=== PATIENT | female | born 1950 | race Caucasian/White ===

== ENCOUNTER → 2016-04-29 | Outpatient (CLI) | payer MEDICARE, OTHER ==
--- NOTE | 2016-04-29 15:09 | US ---
EXAMINATION TYPE: US thyroid st tissue head/neck DATE OF EXAM: 04/29/2016 2:52 PM COMPARISON: In pacs CLINICAL HISTORY: Thyroid nodules. GLAND SIZE: Right Lobe: 4.5 x 1.5 x 2.0cm Overall Parenchyma: heterogenous Left Lobe: 3.7 x 1.3 x 1.4cm Overall Parenchyma: heterogeneous Isthmus Thickness: 0.4cm NODULES RIGHT: # of nodules measured on right: 1 1. 0.5 X 0.3 x 0.5 cm hypoechoic mixed nodule at the lower pole with well-defined margins. This no dule is wider than tall and shows peripheral vascularity. Prior size: 0.5 x 0.3 x 0.3 cm LEFT: # of nodules measured on left: 1 1. 0.6 X 0.4 x 0.6 cm hypoechoic mixed nodule at the mid pole with well-defined margins. This nodu le is wider than tall and shows peripheral vascularity. Prior size: 0.6 x 0.3 x 0.5 cm ISTHMUS: # of nodules measured in the isthmus: IMPRESSION: Heterogeneous thyroid tissue suggests thyroiditis. There are bilateral thyroid nodule which are stabl e from the previous exam with none measuring greater than 1 cm.
== END | disposition home or self-care (01) ==
LOC: RADUSWWP 14:34
PROVIDERS: ATTEND Family Medicine
DX: E04.2 Nontoxic multinodular goiter (principal)
CPT/HCPCS: 76536

== ENCOUNTER → 2016-06-06 | Outpatient (CLI) | payer MEDICARE, OTHER ==
--- NOTE | 2016-06-07 10:47 | MM ---
Reason for exam: screening (asymptomatic). Last mammogram was performed 1 year and 6 months ago. History: Patient is postmenopausal. Family history of breast cancer in maternal aunt. Benign excisional biopsy, April 2009. Took estrogen for 1 year. Physical Findings: A clinical breast exam by your physician is recommended on an annual basis and results should be correlated with mammographic findings. MG 3D Screening Mammo W/Cad Bilateral CC and MLO view(s) were taken. Prior study comparison: December 09, 2014, bilateral MG screening mammo w CAD. September 02, 2013, bilateral MG screening mammo w CAD. There are scattered fibroglandular densities. Finding: There are typically benign oil cysts calcifications in the lower quadrant of the left breast. There is a chronic nodularity in the right breast. There is no discrete abnormality. ASSESSMENT: Benign, BI-RAD 2 RECOMMENDATION: Routine screening mammogram of both breasts in 1 year.
== END | disposition home or self-care (01) ==
LOC: RADMAMWWP 08:45
PROVIDERS: ATTEND Family Medicine
DX: Z12.31 Encounter for screening mammogram for malignant neoplasm of breast (principal)
CPT/HCPCS: 77063; G0202

== ENCOUNTER → 2016-10-11 | Outpatient (CLI) | payer MEDICARE, OTHER ==
--- NOTE | 2016-10-11 18:11 | US ---
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 GLAND SIZE: Right Lobe: 4.7 x 1.4 x 1.5 cm Overall Parenchyma: heterogenous Left Lobe: 4.5 x 1.3 x 1.3 cm Overall Parenchyma: heterogeneous Isthmus Thickness: 0.4 cm NODULES RIGHT: # of nodules measured on right: 1 1. 0.6 X 0.3 x 0.5 cm hypoechoic mixed nodule at the lower pole with well-defined margins. This nod ule is wider than tall and shows peripheral vascularity. Prior size: 0.6 x 0.3 x 0.5 cm LEFT: # of nodules measured on left: 1 1. 0.6 X 0.4 x 0.6 cm hypoechoic mixed nodule at the mid pole with well-defined margins. This nodul e is wider than tall and shows peripheral vascularity. Prior size: 0.6 x 0.4 x 0.6 cm ISTHMUS: # of nodules measured in the isthmus: 0 Bilateral neck scanned, no evidence of lymphadenopathy. IMPRESSION: Small bilateral complex cysts are stable compared to old exam. I have a very low suspicion of maligna ncy. No dominant thyroid mass.
== END | disposition home or self-care (01) ==
LOC: RADUSMAIN 17:14
PROVIDERS: ATTEND Family Medicine
DX: E04.2 Nontoxic multinodular goiter (principal)
CPT/HCPCS: 76536

== ENCOUNTER → 2017-10-10 | Outpatient (CLI) | payer MEDICARE, OTHER ==
--- NOTE | 2017-10-10 13:18 | US ---
EXAMINATION TYPE: US thyroid st tissue head/neck DATE OF EXAM: 10/10/2017 COMPARISON: Thyroid ultrasound April 10, 2017 CLINICAL HISTORY: E04.1 Nontoxic Single Thyroid Nodule. GLAND SIZE: Right Lobe: 4.6 x 1.8 x 1.9 cm Overall Parenchyma: heterogenous Left Lobe: 3.8 x 1.5 x 1.5 cm Overall Parenchyma: heterogeneous Isthmus Thickness: 0.7 cm NODULES RIGHT: # of nodules measured on right: 2 1. 0.3 X 0.6 x 0.6 cm solid nodule at the medial pole with poorly defined margins; . This nodule i s wider than tall and shows no intranodular vascularity. Prior size: 0.7 x 0.6 x 0.4 cm 2. 0.4 X 0.4 x 0.4 cm solid nodule at the lower pole with well-defined margins; . This nodule is ro und and shows no intranodular vascularity. Prior size: 0.4 x0.4 x 0.3 cm LEFT: # of nodules measured on left: 2 1. 0.5 X 0.4 x 0.5 cm nodule at the lower pole with margins; . This nodule is round and shows no i ntranodular vascularity. Prior size: 0.6 x 0.5 x 0.4 cm 2. 0.4 X 0.3 x 0.6 cm mixed nodule at the mid pole with well-defined margins; . This nodule is rou nd and shows no intranodular vascularity. Prior size: 0.6 x 0.5 x 0.3 cm ISTHMUS: # of nodules measured in the isthmus: 1 1. 1.3 X 0.7 x 0.6 cm nodule at the isthmus pole with well-defined margins; . This nodule is wide r than tall and shows no intranodular vascularity. Prior size: no prior Bilateral neck scanned, no evidence of lymphadenopathy. Heterogeneous normal-sized thyroid with scattered subcentimeter bilateral nodules is redemonstrated w ithout significant interval change. Technologist robb greater than 1 cm isoechoic nodule in right th yroid, I do not feel this is true nodule on review of images saved. IMPRESSION: Overall stable findings felt present, no new definitive greater than 1 cm solid or cystic nodule. Sta ble subcentimeter nodules redemonstrated.
== END | disposition home or self-care (01) ==
LOC: RADUSWWP 12:25
PROVIDERS: ATTEND Family Medicine
DX: E04.2 Nontoxic multinodular goiter (principal)
CPT/HCPCS: 76536

== ENCOUNTER → 2017-11-06 | Outpatient (CLI) | payer MEDICARE, OTHER ==
--- NOTE | 2017-11-06 16:18 | BD ---
EXAMINATION TYPE: Axial Bone Density DATE OF EXAM: 11/06/2017 COMPARISON: 04/05/2005 CLINICAL HISTORY: 67-year-old female screening for osteoporosis Height: 64.5 IN Weight: 194 LBS FRAX RISK QUESTIONS: Secondary Osteoporosis: Current Tobacco Use: YES RISK FACTORS HISTORY OF: Family History of Osteoporosis: AUNT Active: YES Diet low in dairy products/other sources of calcium: YES Postmenopausal woman: AGE 50 Take estrogen and/or progesterone medications: NOT NOW How long: AGE 50-50 Lost more than 2 inches in height since high school: YES 04/25" MEDICATIONS: Additional Medications: BLOOD PRESSURE MEDS, IBUPROFEN EXAM MEASUREMENTS: Bone mineral densitometry was performed using the [employer] System. Bone mineral density as measured about the Lumbar spine is: ----- L1-L4(G/cm2): 0.946 T Score Values are as follows: ----- L2: -2.2 ----- L3: -1.9 ----- L4: -1.4 ----- L1-L4: -1.9 Bone mineral density has: Decreased -1.9% since study of: 04/05/2005 Bone mineral density about the R hip (g/cm2): 0.824 Bone mineral density about the L hip (g/cm2): 0.841 T Score values are as follows: -----R Neck: -1.5 -----L Neck: -1.4 -----R Total: -0.9 -----L Total: -0.9 Bone mineral density has: Decreased 11.2% since study of: 04/05/2005 IMPRESSION: Osteopenia (T Score between -2.5 and -1). There is slightly increased risk of fracture and the patient may be considered for treatment. Re-Screen 2-5 years. NOTE: T-SCORE=SD OF THE YOUNG ADULT MEAN.
--- NOTE | 2017-11-08 09:42 | MM ---
Reason for exam: screening (asymptomatic). Last mammogram was performed 1 year and 5 months ago. History: Patient is postmenopausal. Family history of breast cancer in maternal aunt. Benign excisional biopsy, April 2009. Took estrogen for 1 year. Physical Findings: A clinical breast exam by your physician is recommended on an annual basis and results should be correlated with mammographic findings. MG 3D Screening Mammo W/Cad Bilateral CC and MLO view(s) were taken. Prior study comparison: June 06, 2016, bilateral MG 3d screening mammo w/cad. December 09, 2014, bilateral MG screening mammo w CAD. There are scattered fibroglandular densities. There is chronic nodularity in the right breast. No significant changes when compared with prior studies. ASSESSMENT: Negative, BI-RAD 1 RECOMMENDATION: Routine screening mammogram of both breasts in 1 year.
== END | disposition home or self-care (01) ==
LOC: RADMAMWWP 13:12
PROVIDERS: ATTEND Family Medicine
DX: Z12.31 Encounter for screening mammogram for malignant neoplasm of breast (principal); M85.80 Other specified disorders of bone density and structure, unspecified site
CPT/HCPCS: 77063; 77067; 77080

== ENCOUNTER → 2017-11-10 | Day surgery (SDC) | payer MEDICARE, OTHER ==
[2017-11-08 12:07] VITALS: BMI 33.3
[~2017-11-10] MED LIST: LACTATED RINGERS 1,000 ML IV SCH; LIDOCAINE 1% 20 ML VIAL (10MG/ML) FOR IV START INTRADERMA PRN; LIDOCAINE 1% INJ 10MG/ML (20 ML MDV) ONE; PROPOFOL 10 MG/ML 20 ML VIAL IV ONE
[2017-11-10 11:03] VITALS: TEMP 98.5
--- NOTE | 2017-11-10 11:59 | P.PCN ---
Date of Procedure: 11/10/17 Procedure(s) Performed: BRIEF HISTORY: Patient is a 67-year-old pleasant White white female, scheduled for an elective colonoscopy as a part of value should prior history of colon polyps. Last colonoscopy was in 2010. PROCEDURE PERFORMED: Colonoscopy with biopsy. PREOPERATIVE DIAGNOSIS: History of colon polyps. IV sedation per Anesthesia. PROCEDURE: After informed consent was obtained, the patient, was brought into the endoscopy unit. IV sedation was administered by Anesthesia under continuous monitoring. Digital rectal examination was normal. Initially the Olympus CF- 160 flexible video colonoscope was then inserted in the rectum, gradually advanced into the descending colon and further advancement was not possible. The scope was removed and a. The colonoscope was then introduced into the rectum and gradually advanced into the cecum without any difficulty. Careful examination was performed as the scope was gradually being withdrawn. Ileocecal valve and the appendiceal orifice were visualized and appeared normal. Prep was poor and several areas of the colon. Thorough irrigation was performed.. Mucosa of the cecum, ascending colon, transverse colon, appeared normal. In the descending colon there were 2 small 5 mm sessile polyps were removed by cold biopsy. Rest of the descending colon, sigmoid colon, and rectum appeared normal. Retroflexion was performed in the rectum and no lesions were seen. Scattered sigmoid diverticulosis seen. The patient tolerated the procedure well. IMPRESSION: Poor prep in the right colon 5 mm 2 descending colon polyps status post removal by biopsy Scattered sigmoid diverticulosis RECOMMENDATIONS: Findings of this examination were discussed with the patient as well as her family. She was advised to follow with the biopsy doesn't have a repeat colonoscopy in 3 years because of the poor prep that was in the right colon.
[2017-11-10 12:20] VITALS: BP 145/75; PULSE 75; RESP 16
== END ==
LOC: ORWHC2ENDO 10:22
PROVIDERS: ATTEND Internal Medicine Gastroenterology
DX: Z12.11 Encounter for screening for malignant neoplasm of colon (principal); D12.4 Benign neoplasm of descending colon; K57.30 Diverticulosis of large intestine without perforation or abscess without bleeding; Z86.010 Personal history of colon polyps; I10 Essential (primary) hypertension; F17.200 Nicotine dependence, unspecified, uncomplicated; M19.90 Unspecified osteoarthritis, unspecified site; Z79.1 Long term (current) use of non-steroidal anti-inflammatories (NSAID); Z79.899 Other long term (current) drug therapy; Z88.8 Allergy status to other drugs, medicaments and biological substances
CPT/HCPCS: 88305; 45380; J2001; J2704

== ENCOUNTER → 2018-04-25 | Outpatient (CLI) | payer MEDICARE, OTHER ==
--- NOTE | 2018-04-25 12:58 | US ---
EXAMINATION TYPE: US thyroid st tissue head/neck DATE OF EXAM: 04/25/2018 COMPARISON: 10/10/2017 CLINICAL HISTORY: 68-year-old female E04.1 Nontoxic goiter. Follow up thyroid nodules TECHNIQUE: Multiple sonographic images of thyroid gland are obtained. FINDINGS: GLAND SIZE: Right Lobe: 4.5 x 1.4 x 2.2 cm Overall Parenchyma: heterogenous Left Lobe: 4.4 x 1.4 x 1.4 cm Overall Parenchyma: heterogeneous Isthmus Thickness: 0.5 cm NODULES RIGHT: # of nodules measured on right: 0 LEFT: # of nodules measured on left: 2 1. 0.6 X 0.4 x 0.7 cm hypoechoic nodule at the mid pole with well-defined margins. This nodule is w ider than tall and shows no intranodular vascularity. Prior size: 0.5 x 0.4 x 0.5 cm 2. 0.5 X 0.3 x 0.4 cm hypoechoic nodule at the upper pole with well-defined margins. This nodule is wider than tall and shows intranodular vascularity. Prior size: 6 x 3 x 4 mm ISTHMUS: # of nodules measured in the isthmus: 0 Bilateral neck scanned, no evidence of lymphadenopathy. [employer] Sales Manager notes: Heterogeneous gland with left lobe nodules described above, right lobe and isthmus nodules seen on previous exam not clearly defined on today's exam. IMPRESSION: 1. The previously seen right-sided thyroid nodules are no longer seen at this time. 2. There are 2 subcentimeter nodules on the left, the one in the upper pole has decreased 1 mm and th e one in the midpole has increased by 2 mm. Additional follow-up can be performed.
== END ==
LOC: RADUSWWP 11:47
PROVIDERS: ATTEND Family Medicine
DX: E04.2 Nontoxic multinodular goiter (principal)
CPT/HCPCS: 76536

== ENCOUNTER → 2018-09-28 | Outpatient (CLI) | payer MEDICARE, OTHER ==
--- NOTE | 2018-09-29 15:35 | US ---
EXAMINATION TYPE: US thyroid st tissue head/neck DATE OF EXAM: 09/28/2018 COMPARISON: April 25, 2018 CLINICAL HISTORY: E04.1 Nontoxic single thyroid nodule. Follow up thyroid nodules GLAND SIZE: Right Lobe: 5.0 x 1.6 x 2.3 cm Overall Parenchyma: heterogenous Left Lobe: 3.9 x 1.4 x 1.5 cm Overall Parenchyma: heterogeneous Isthmus Thickness: 0.5 cm NODULES RIGHT: # of nodules measured on right: 0 LEFT: # of nodules measured on left: 2 1. 0.7 X 0.4 x 0.6 cm hypoechoic mixed nodule at the mid pole with well-defined margins. This nodul e is wider than tall and shows no intranodular vascularity. Prior size: 0.6 x 0.4 x 0.7 cm 2. 0.4 X 0.3 x 0.4 cm hypoechoic solid nodule at the upper pole with well-defined margins. This nodu le is wider than tall and shows intranodular vascularity. Prior size: 0.5 x 0.3 x 0.4 cm ISTHMUS: # of nodules measured in the isthmus: 0 Bilateral neck scanned, no evidence of lymphadenopathy. IMPRESSION: Bilateral thyroid nodules are stable compared to old exam. No dominant thyroid mass.
== END ==
LOC: RADUSWWP 16:11
PROVIDERS: ATTEND Family Medicine
DX: E04.2 Nontoxic multinodular goiter (principal)
CPT/HCPCS: 76536

== ENCOUNTER → 2018-11-07 | Outpatient (CLI) | payer MEDICARE, OTHER ==
--- NOTE | 2018-11-08 14:51 | MM ---
Reason for exam: screening (asymptomatic). Last mammogram was performed 1 year ago. History: Patient is postmenopausal. Family history of breast cancer in maternal aunt. Benign excisional biopsy, April 2009. Took estrogen for 1 year. Physical Findings: A clinical breast exam by your physician is recommended on an annual basis and results should be correlated with mammographic findings. MG 3D Screening Mammo W/Cad Bilateral CC and MLO view(s) were taken. Prior study comparison: November 06, 2017, bilateral MG 3d screening mammo w/cad. June 06, 2016, bilateral MG 3d screening mammo w/cad. There are scattered fibroglandular densities. There is chronic nodularity bilaterally. No significant changes when compared with prior studies. ASSESSMENT: Benign, BI-RAD 2 RECOMMENDATION: Routine screening mammogram of both breasts in 1 year.
== END | disposition home or self-care (01) ==
LOC: RADMAMWWP 12:58
PROVIDERS: ATTEND Family Medicine
DX: Z12.31 Encounter for screening mammogram for malignant neoplasm of breast (principal)
CPT/HCPCS: 77063; 77067

== ENCOUNTER → 2019-11-12 | Outpatient (CLI) | payer MEDICARE, OTHER ==
--- NOTE | 2019-11-12 11:28 | US ---
EXAMINATION TYPE: US thyroid st tissue head/neck DATE OF EXAM: 11/12/2019 COMPARISON: 09/28/2018 CLINICAL HISTORY: 69-year-old female E04.2 MULTINODULAR GOITER. Follow up nodules. No hx of biopsy. TECHNIQUE: Multiple sonographic images of the thyroid gland are obtained. FINDINGS: GLAND SIZE: Right Lobe: 4.6 x 1.8 x 1.7 cm Overall Parenchyma: heterogenous Left Lobe: 4.1 x 1.2 x 1.2 cm Overall Parenchyma: heterogeneous Isthmus Thickness: 0.4 cm NODULES RIGHT: # of nodules measured on right: 0 LEFT: # of nodules measured on left: 2 1. 0.6 X 0.5 x 0.4 cm mixed nodule at the mid pole with well-defined margins. This nodule is wider than tall and shows no intranodular vascularity. Prior size: 0.7 x 0.4 x 0.6 cm 2. 0.4 X 0.4 x 0.3 cm hypoechoic nodule at the upper pole with well-defined margins. This nodule is wider than tall and shows no intranodular vascularity. Prior size: 0.4 x 0.3 x 0.4 cm ISTHMUS: # of nodules measured in the isthmus: 0 Bilateral neck scanned, no evidence of lymphadenopathy. IMPRESSION: 2 stable subcentimeter nodules on the left measuring 6 and 4 mm.
--- NOTE | 2019-11-13 08:43 | MM ---
Reason for exam: screening (asymptomatic). Last mammogram was performed 1 year ago. History: Patient is postmenopausal. Family history of breast cancer in maternal aunt. Benign excisional biopsy, April 2009. Took estrogen for 1 year. Physical Findings: A clinical breast exam by your physician is recommended on an annual basis and results should be correlated with mammographic findings. MG 3D Screening Mammo W/Cad Bilateral CC and MLO view(s) were taken. Prior study comparison: November 07, 2018, bilateral MG 3d screening mammo w/cad. November 06, 2017, bilateral MG 3d screening mammo w/cad. There are scattered fibroglandular densities. There is chronic nodularity bilaterally. There is no discrete abnormality. ASSESSMENT: Benign, BI-RAD 2 RECOMMENDATION: Routine screening mammogram of both breasts in 1 year.
== END | disposition home or self-care (01) ==
LOC: RADMAMWWP 07:14
PROVIDERS: ATTEND Family Medicine
DX: Z12.31 Encounter for screening mammogram for malignant neoplasm of breast (principal); E04.2 Nontoxic multinodular goiter
CPT/HCPCS: 76536; 77063; 77067

== ENCOUNTER → 2020-11-02 | Outpatient (CLI) | payer MEDICARE, OTHER ==
--- NOTE | 2020-11-03 09:21 | US ---
EXAMINATION TYPE: US thyroid st tissue head/neck DATE OF EXAM: 11/02/2020 COMPARISON: US CLINICAL HISTORY: E04.2 MULTINODULAR GOITER. F/U GLAND SIZE: Right Lobe: 4.3 x 1.9 x 1.9 cm Overall Parenchyma: homogenous Left Lobe: 4.5 x 1.4 x 1.4 cm Overall Parenchyma: heterogeneous Isthmus Thickness: 0.4 cm NODULES RIGHT: # of nodules measured on right: 0 LEFT: # of nodules measured on left: 2 1. 0.8 X 0.7 x 0.4 cm, mid mixed cystic and solid, hyperechoic nodule, which is wider than tall, wi th smooth margins, without echogenic foci. Prior size: 0.6 x 0.5 x 0.4 cm 2. 0.5 X 0.5 x 0.2 cm, upper , solid or almost completely solid, hyperechoic nodule, which is wide r than tall, with smooth margins, without echogenic foci. Prior size: 0.4 x 0.4 x 0.3 cm Bilateral neck scanned, no evidence of lymphadenopathy. IMPRESSION: No significant change since prior examination in the left thyroid nodules. 2017 ACR TI-RADS LEVEL: TR-RADS 4 - Moderately Suspicious: Follow if > 1 cm, FNA if > 1.5 cm *Highest TI-RADS level nodule reported
== END | disposition home or self-care (01) ==
LOC: RADUSWWP 15:58
PROVIDERS: ATTEND Family Medicine
DX: E04.2 Nontoxic multinodular goiter (principal)
CPT/HCPCS: 76536

== ENCOUNTER → 2020-11-16 | Outpatient (CLI) | payer MEDICARE, OTHER ==
--- NOTE | 2020-11-19 14:13 | MM ---
Reason for exam: screening (asymptomatic). Last mammogram was performed 1 year ago. History: Patient is postmenopausal. Family history of breast cancer in maternal aunt. Benign excisional biopsy, April 2009. Took estrogen for 1 year. Physical Findings: A clinical breast exam by your physician is recommended on an annual basis and results should be correlated with mammographic findings. MG 3D Screening Mammo W/Cad Bilateral CC and MLO view(s) were taken. Prior study comparison: November 12, 2019, bilateral MG 3d screening mammo w/cad. November 07, 2018, bilateral MG 3d screening mammo w/cad. There are scattered fibroglandular densities. There is chronic nodularity bilaterally. No significant changes when compared with prior studies. ASSESSMENT: Benign, BI-RAD 2 RECOMMENDATION: Routine screening mammogram of both breasts in 1 year.
== END | disposition home or self-care (01) ==
LOC: RADMAMWWP 08:00
PROVIDERS: ATTEND Family Medicine
DX: Z12.31 Encounter for screening mammogram for malignant neoplasm of breast (principal)
CPT/HCPCS: 77063; 77067

== ENCOUNTER → 2021-05-25 | Outpatient (CLI) | payer MEDICARE, OTHER ==
--- NOTE | 2021-05-25 13:47 | US ---
EXAMINATION TYPE: US thyroid st tissue head/neck DATE OF EXAM: 05/25/2021 COMPARISON: 11/02/2020 CLINICAL HISTORY: E04.2 MULTINODULAR GOITER. Follow up exam GLAND SIZE: Right Lobe: 4.7 x 1.7 x 2.2 cm Overall Parenchyma: heterogenous Left Lobe: 4.3 x 1.2 x 1.4 cm Overall Parenchyma: heterogeneous Isthmus Thickness: 0.33 cm NODULES RIGHT: # of nodules measured on right: 0 LEFT: # of nodules measured on left: 1 1. 0.9 X 0.5 x 0.7 cm, mid , mixed cystic and solid, hypoechoic nodule, which is wider than tall, w ith smooth margins, without echogenic foci. Prior size: 0.8 x 0.7 x 0.4 cm ISTHMUS: # of nodules measured in the isthmus: 0 Bilateral neck scanned, no evidence of lymphadenopathy. Heterogeneous normal size thyroid redemonstrated with stable subcentimeter left thyroid nodule. IMPRESSION: As above. No suspicious new greater than 1 cm solid nodules.
== END | disposition home or self-care (01) ==
LOC: RADUSWWP 13:15
PROVIDERS: ATTEND Family Medicine
DX: E04.2 Nontoxic multinodular goiter (principal)
CPT/HCPCS: 76536

== ENCOUNTER → 2021-11-29 | Outpatient (CLI) | payer MEDICARE, OTHER ==
--- NOTE | 2021-11-29 08:45 | MM ---
Reason for Exam: Screening (asymptomatic). Last mammogram was performed 1 year(s) and 1 month(s) ago. Patient History: Menarche at age 12. First Full-Term at age 20. Postmenopausal. Patient used Estrogen for 1 year. Benign Excisional Biopsy. Maternal aunt had breast cancer. Risk Values: Gilda 5 year model risk: 1.6%. NCI Lifetime model risk: 4.7%. Prior Study Comparison: 11/07/2018 Bilateral Screening Mammogram, [facility]. 11/12/2019 Bilateral Screening Mammogram, [facility]. 11/16/2020 Bilateral Screening Mammogram, [facility]. Tissue Density: There are scattered fibroglandular densities. Findings: Analyzed By CAD. There is no suspicious group of microcalcifications or new suspicious mass in either breast. Chronic nodularity bilaterally. No significant change from prior exams. Overall Assessment: Benign, BI-RAD 2 Management: Screening Mammogram of both breasts in 1 year. A clinical breast exam by your physician is recommended on an annual basis and results should be correlated with mammographic findings. Electronically signed and approved by: Lucho Wooten D.O.
== END | disposition home or self-care (01) ==
LOC: RADMAMWWP 06:38
PROVIDERS: ATTEND Family Medicine
DX: Z12.31 Encounter for screening mammogram for malignant neoplasm of breast (principal)
CPT/HCPCS: 77063; 77067

== ENCOUNTER 2021-12-22 07:30 | Inpatient (IN) | payer MEDICARE, OTHER ==
[2021-12-24] MEDS ORDERED: ALPRAZolam 0.25 MG TAB PO PRN (05:49)
[2021-12-24] MEDS ORDERED: ALPRAZolam 0.5 MG TAB PO PRN (05:49)
[2021-12-24] MEDS ORDERED: SODIUM CHLORIDE 0.9% 1,000 ML in EMPTY BAG 1 BAG IV ONE (05:49)
[2021-12-24] MEDS ORDERED: CLOPIDOGREL 75 MG TAB PO PRN (05:49)
[2021-12-24] MEDS ORDERED: ASPIRIN 81 MG PO PRN (05:49)
[2021-12-24] MEDS ORDERED: NITROGLYCERIN SL TABS 0.4 MG TAB SUBLINGUAL PRN (05:49)
[2021-12-24] MEDS ORDERED: ceFAZolin 2 GM in SODIUM CHLORIDE 0.9% 500 ML 500 ML IRRIGATION PRN (07:00)
[2021-12-24] MEDS ORDERED: SODIUM CHLORIDE 0.9% 1,000 ML IV ONE (07:10)
[2021-12-24] MEDS ORDERED: LIDOCAINE 1% INJ 10MG/ML (30 ML VIAL-PF) SQ ONE (07:52)
[2021-12-24] MEDS ORDERED: HEPARIN SODIUM 1,000 UN/ML (10ML VL) ONE (08:06)
[2021-12-24] MEDS ORDERED: HEPARIN SODIUM 1,000 UN/ML (10ML VL) IV ONE ×2 (08:08→08:21)
[2021-12-24] MEDS ORDERED: CLOPIDOGREL 75 MG TAB ONE (08:09)
[2021-12-24] MEDS ORDERED: CLOPIDOGREL 75 MG TAB PO ONE (08:18)
[2021-12-24] MEDS ORDERED: IOPAMIDOL-370 125ML BTL INJ ONE ×2 (08:46)
--- NOTE | 2021-12-24 09:22 | IR ---
EXAMINATION TYPE: IR stent intravas non coronary DATE OF EXAM: 12/24/2021 COMPARISON: NONE HISTORY: Fluoroscopy time. Fluoroscopy was provided to the referring clinician.
[2021-12-24] MEDS: ATORVASTATIN 80 MG TAB PO SCH (10:40)
[2021-12-24] MEDS: ASPIRIN 81 MG PO SCH (10:40)
[2021-12-24] MEDS: CLOPIDOGREL 75 MG TAB PO SCH (10:41)
--- NOTE | 2021-12-24 17:54 | P.OP ---
Description of Procedure: DESCRIPTION OF PROCEDURE(S): PROCEDURES PERFORMED: Ascending aortic root angiography, selective left carotid angiography, carotid stent with 7 x 9 x 40mm Xact carotid stent, post dilated with a 5.0 balloon INDICATION: Severe asymptomatic carotid artery stenosis CONSENT:I have discussed the risks, benefits and alternative therapies for the above-mentioned procedure and for both sedation/analgesia as well as necessary blood product administration, if indicated, as they pertain to this patient. The patient has indicated understanding and acceptance of the risks and procedures discussed. PROCEDURE: After the risks, benefits and alternatives of the above mentioned procedure explained in detail with the patient, informed consent was obtained. Patient was taken to the catheterization lab and prepped and draped in usual fashion. 1% lidocaine was used to anesthetize the right femoral area. A 6- Barbadian sheath was placed in the right femoral artery using modified Seldinger technique. A 5-Barbadian pigtail catheter was inserted to the ascending aorta and DSA imaging was obtained. Next using VTK catheter the proximal left common carotid artery was engaged and selective angiography was performed. Angiography showed severe 99% stenosis and therefore intervention was recommended. Heparin was given for ACT greater than 250. Therefore a 0.035 glide advantage was advanced into the left external carotid artery. Over the glide advantage wire, a 6-Barbadian destination sheath was advanced into the left common carotid artery. Next a 0.014 Embo shield distal embolic protection device was advanced into the petrous portion of the left internal carotid artery. The filter was then deployed. Next predilation was performed with a 4.0 x 20 mm balloon. Next a 9 x 7 x 40 mm Xact carotid stent was deployed. The stent was postdilated with a 5.0 x 20 mm balloon. Pre-intervention there was 99% stenosis and mildly sluggish flow postintervention there was less than 10% stenosis with uninhibited flow. A right femoral angiogram was performed and anatomoy was suitable for closure. A 6Fr Angioseal was placed with hemostasis achieved. The patient tolerated the procedure well. Patient was transported back to the post catheterization holding area in stable condition. ASCENDING AORTA: There is no significant aneurysm or stenosis. Right common carotid: 0% stenosis Right internal carotid artery: 20% stenosis Left common carotid: 0% stenosis Left internal carotid artery: 99% stenosis FINAL IMPRESSION: 1. 99% left internal carotid artery stenosis, status post carotid stent with 7 x 9 x 40mm Xact carotid stent, post dilated with a 5.0 balloon with excellent result PLAN: 1. Aggressive risk factor modification per most recent ACC/AHA guidelines. 2. Continue dual antiplatelets with aspirin and Plavix for minimum of 3 months. 3. Monitor for any hemodynamic or electrical instability.
[2021-12-25 03:51] VITALS: RESP 18
[2021-12-25] MEDS: ATORVASTATIN 80 MG TAB PO SCH (08:56)
[2021-12-25] MEDS: CLOPIDOGREL 75 MG TAB PO SCH (08:56)
[2021-12-25] MEDS: ASPIRIN 81 MG PO SCH (08:56)
[2021-12-25 09:08] VITALS: BP 131/69; PULSE 91; TEMP 97.7
--- NOTE | 2021-12-25 10:58 | P.DS ---
Providers Date of admission: 12/24/21 06:20 Attending physician: Royce Cevallos DO Primary care physician: [facility] Course: The patient is a 71-year-old female who follows with Dr. Flower in the office. She is currently admitted to the hospital after undergoing left carotid stenting on 12/24/[address] Cveallos. The patient had 99% left carotid stenosis prior to stenting with less than 10% stenosis thereafter. The patient was interviewed and examined. She states she's done well postoperatively. She has been up ambulating around her room. She denies any dizziness or lightheadedness. No visual disturbances. No discomfort in her groin. GENERAL: Well-appearing, well-nourished and in no acute distress. NECK: Supple without JVD or thyromegaly. No carotid bruit. LUNGS: Breath sounds clear to auscultation bilaterally. Respiration equal and unlabored. No wheezes, rales or rhonchi. HEART: Regular rate and rhythm without murmurs, rubs or gallops. S1 and S2 heard. EXTREMITIES: Normal range of motion, no edema. No clubbing or cyanosis. Peripheral pulses intact and strong. Right groin site has mild bruising. No hematoma. No signs of infection. IMPRESSION: Severe left carotid stenosis Status post carotid stenting Dyslipidemia, repeat direct LDL PLAN: Patient to be discharged on dual antiplatelet therapy Continue her rosuvastatin 40 mg daily Patient may be discharged from the cardiac standpoint I am dictating on behalf of Dr Venancio Flower's history/physical and assessment/plan. Plan - Discharge Summary Discharge Rx Participant: No New Discharge Prescriptions: Continue Rosuvastatin Calcium 40 mg PO DAILY Aspirin 81 mg PO DAILY Unk Vitamin B12 1 tab PO DAILY Clopidogrel [Plavix] 75 mg PO DAILY Unk Vitamin D3 1 tab PO DAILY Discharge Medication List Aspirin 81 mg PO DAILY 12/23/21 [History] Clopidogrel [Plavix] 75 mg PO DAILY 12/23/21 [History] Rosuvastatin Calcium 40 mg PO DAILY 12/23/21 [History] Unk Vitamin B12 1 tab PO DAILY 12/23/21 [History] Unk Vitamin D3 1 tab PO DAILY 12/23/21 [History] Follow up Appointment(s)/Referral(s): Venancio Flower MD [STAFF PHYSICIAN] - 1 Week (f/u rizwana abdul/todd ) Patient Instructions/Handouts: Carotid Artery Stent Placement (DC)
[2021-12-25 17:43] LABS: Chol/HDL Ratio 2.85 Ratio; LDL Cholesterol,Calculated 39.4 mg/dL (0.0-131.0)
== END 2021-12-25 12:45 | disposition home or self-care (01) | DRG 36 ==
LOC: 2ORMAIN 12-24 06:20 → 3SCARD 12-24 09:22
PROVIDERS: ADMIT Internal Medicine; ATTEND Internal Medicine
PROC: 037L3DZ Dilation of Left Internal Carotid Artery with Intraluminal Device, Percutaneous Approach (ICD-10-PCS; principal; 2021-12-24 07:30)
DX: I65.22 Occlusion and stenosis of left carotid artery (principal); E78.5 Hyperlipidemia, unspecified; I10 Essential (primary) hypertension; Z79.899 Other long term (current) drug therapy; Z82.49 Family history of ischemic heart disease and other diseases of the circulatory system; F17.210 Nicotine dependence, cigarettes, uncomplicated
CPT/HCPCS: 37215; 80061; 87635

== ENCOUNTER → 2022-12-12 | Outpatient (CLI) | payer MEDICARE, OTHER ==
--- NOTE | 2022-12-12 10:48 | US ---
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 0.7 X 0.6 x 0.9 cm, mid, mixed cystic and solid, hypoechoic nodule, which is wider than tall, wi th smooth margins, without echogenic foci. Prior size: 0.7 x 0.5 x 0.9 cm ISTHMUS: # of nodules measured in the isthmus: 0 Bilateral neck scanned, no evidence of lymphadenopathy. Stable sub-centimeter left thyroid nodule. IMPRESSION: 1. Subcentimeter nodule appears stable left lobe thyroid. 2017 ACR TI-RADS LEVEL: TR-RADS 4 - Moderately Suspicious: Follow if > 1 cm, FNA if > 1.5 cm *Highest TI-RADS level nodule reported
--- NOTE | 2022-12-13 08:13 | MM ---
Reason for Exam: Screening (asymptomatic). Last screening mammogram was performed 12 month(s) ago. Patient History: Menarche at age 12. First Full-Term at age 20. Postmenopausal. Patient used Estrogen for 1 year. Benign Excisional Biopsy. Maternal aunt had breast cancer. Risk Values: Gilda 5 year model risk: 1.6%. NCI Lifetime model risk: 4.5%. Prior Study Comparison: 11/12/2019 Bilateral Screening Mammogram, [facility]. 11/16/2020 Bilateral Screening Mammogram, [facility]. 11/29/2021 Bilateral MG 3D screening mammo w/cad, [facility]. Tissue Density: The breast tissue is heterogeneously dense. This may lower the sensitivity of mammography. Findings: Analyzed By CAD. There is no suspicious group of microcalcifications or new suspicious mass in either breast. Overall Assessment: Benign, BI-RAD 2 Management: Screening Mammogram of both breasts in 1 year. . Patient should continue monthly self-breast exams. A clinical breast exam by your physician is recommended on an annual basis. This exam should not preclude additional follow-up of suspicious palpable abnormalities. Note on Gilda scores and lifetime risk: 1. A Gilda score greater than 3% is considered moderate risk. If this is the case, consider specialist referral to assess eligibility for a risk reducing agent. 2. If overall lifetime risk for the development of breast cancer is 20% or higher, the patient may qualify for future screening with alternating mammogram and breast MRI. Electronically signed and approved by: Fidencio Rodriguez M.D. Radiologis
== END | disposition home or self-care (01) ==
LOC: RADMAMWWP 09:33
PROVIDERS: ATTEND Family Medicine
DX: Z12.31 Encounter for screening mammogram for malignant neoplasm of breast (principal); E04.2 Nontoxic multinodular goiter; Z78.0 Asymptomatic menopausal state; Z80.3 Family history of malignant neoplasm of breast
CPT/HCPCS: 76536; 77063; 77067

== ENCOUNTER 2023-02-07 08:32 | Inpatient (IN) | payer MEDICARE, OTHER ==
[2023-02-07] MEDS ORDERED: SODIUM CHLORIDE 0.9% 500 ML 500 ML IV STA (09:11)
--- NOTE | 2023-02-07 09:20 | ED ---
General Adult HPI - General Chief complaint: Recheck/Abnormal Lab/Rx Stated complaint: BP HIGH DIZZY NUMBNESS LFT SIDE FACE Time Seen by Provider: 02/07/23 08:40 Source: patient, RN notes reviewed, old records reviewed Mode of arrival: ambulatory Limitations: no limitations - History of Present Illness Initial comments: 73-year-old female presenting for evaluation of elevated blood pressure. Patient does not have a diagnosis of hypertension. She's had previous carotid artery stenting and is on 81 mg of aspirin as well as Plavix. Over the past 24 hours she has developed some dizziness as well as some left facial tingling. No facial weakness or droop. No speech and normalities. No limb weakness. - Related Data Home Medications Medication Instructions Recorded Confirmed Aspirin 81 mg PO DAILY 12/23/21 12/24/21 Clopidogrel [Plavix] 75 mg PO DAILY 12/23/21 12/24/21 Rosuvastatin Calcium 40 mg PO DAILY 12/23/21 12/24/21 Unk Vitamin B12 1 tab PO DAILY 12/23/21 12/23/21 Unk Vitamin D3 1 tab PO DAILY 12/23/21 12/23/21 Allergies Allergy/AdvReac Type Severity Reaction Status Date / Time Beta-Blockers Allergy Rash/Hives Verified 02/07/23 08:53 (Beta-Adrenergic Bloc Review of Systems ROS Statement: Those systems with pertinent positive or pertinent negative responses have been documented in the HPI. ROS Other: All systems not noted in ROS Statement are negative. Past Medical History Past Medical History: Hyperlipidemia Additional Past Medical History / Comment(s): left carotid decreased flow per scan, pt denies sx. arthritis in spine and hips, Hx of kidney stones. Stent left Carotid History of Any Multi-Drug Resistant Organisms: None Reported Past Surgical History: Cholecystectomy, Tonsillectomy Additional Past Surgical History / Comment(s): rt cataract removed and repaid or torn retina. left shoulder bone spur removed. Couple D&Cs, cyst removed above rt eye. cyst removed rt ovary Past Anesthesia/Blood Transfusion Reactions: No Reported Reaction Additional Past Anesthesia/Blood Transfusion Reaction / Comment(s): no blood transfusion issues Past Psychological History: Anxiety Smoking Status: Former smoker Past Alcohol Use History: Occasional Past Drug Use History: None Reported - Past Family History Father Family Medical History: Cancer Mother Family Medical History: Coronary Artery Disease (CAD) Daughter(s) Additional Family Medical History / Comment(s): blood clot -leg General Exam Limitations: no limitations General appearance: alert, in no apparent distress Head exam: Present: atraumatic, normocephalic Eye exam: Present: normal appearance, PERRL Neck exam: Present: normal inspection Respiratory exam: Present: normal lung sounds bilaterally. Absent: respiratory distress, wheezes Cardiovascular Exam: Present: regular rate, normal rhythm GI/Abdominal exam: Present: soft. Absent: distended, tenderness Neurological exam: Present: alert, oriented X3, CN II-XII intact, other (NIH is 0). Absent: motor sensory deficit Psychiatric exam: Present: normal affect, normal mood Skin exam: Present: warm, dry, intact. Absent: cyanosis, diaphoretic Course Vital Signs 02/07/23 08:49 Temperature 97.4 F L Pulse Rate 98 Respiratory 18 Rate Blood Pressure 156/77 O2 Sat by Pulse 96 Oximetry Medical Decision Making - Medical Decision Making Was pt. sent in by a medical professional or institution (, PA, HARD[employer] FLOOR REFINISHER, urgent care, hospital, or detention...) When possible be specific @ -No Did you speak to anyone other than the patient for history (EMS, parent, family, police, friend...)? What history was obtained from this source @ -No Did you review nursing and triage notes (agree or disagree)? Why? @ -I reviewed and agree with nursing and triage notes Were old charts reviewed (outside hosp., previous admission, EMS record, old EKG, old radiological studies, urgent care reports/EKG's, detention records)? Report findings @ -No old charts were reviewed Differential Diagnosis (chest pain, altered mental status, abdominal pain women, abdominal pain men, vaginal bleeding, weakness, fever, dyspnea, syncope, headache, dizziness, GI bleed, back pain, seizure, CVA, palpatations, mental health, musculoskeletal)? @ Differential CVA Ischemic stroke, hemorrhagic stroke, brain tumor, atypical migraine, Wernicke's encephalopathy, seizure, multiple sclerosis, meningitis, encephalitis, hypoglycemia, Guillain-Cortez, electrolytes disturbance, myasthenia gravis.... This is not meant to be an all-inclusive list EKG interpreted by me (3pts min.). @ -[Sinus rhythm rate of 92, IN interval 159, QRS duration 88, QTC [address] segment elevation, ST segment depression in the lateral precordial leads X-rays interpreted by me (1pt min.). @ -None done CT interpreted by me (1pt min.). @ CT negative for intracranial hemorrhage or mass effect U/S interpreted by me (1pt. min.). @ -None done What testing was considered but not performed or refused? (CT, X-rays, U/S, labs)? Why? @ -None What meds were considered but not given or refused? Why? @ -None Did you discuss the management of the patient with other professionals (professionals i.e. , PA, [employer] REFINISHER, lab, RT, psych nurse, director social, automobile sales consultant, teacher, information assurance officer, director of casework services)? Give summary @ Dr. Chris Was smoking cessation discussed for >3mins.? @ -No Was critical care preformed (if so, how long)? @ -No Were there social determinants of health that impacted care today? How? (Homelessness, low income, unemployed, alcoholism, drug addiction, transportation, low edu. Level, literacy, decrease access to med. care, residential, rehab)? @ -No Was there de-escalation of care discussed even if they declined (Discuss DNR or withdrawal of care, Hospice)? DNR status @ -No What co-morbidities impacted this encounter? (DM, HTN, Smoking, COPD, CAD, Cancer, CVA, ARF, Chemo, Hep., AIDS, mental health diagnosis, sleep apnea, morbid obesity)? @ -[Carotid stenosis Was patient admitted / discharged? Hospital course, mention meds given and route, prescriptions, significant lab abnormalities, going to OR and other pertinent info. @ 73-year-old female with left facial numbness and tingling, dizziness which is acute and mildly elevated blood pressure. There is concern for CVA her symptoms have been present for the past 24 hours. She has no speech or melena, no limb weakness. Patient receives CT imaging of the brain in the emergency department which is negative for intracranial hemorrhage or mass effect. She's given a full dose aspirin. She will be admitted for further stroke evaluation. Undiagnosed new problem with uncertain prognosis? @ -No Drug Therapy requiring intensive monitoring for toxicity (Heparin, Nitro, Insulin, Cardizem)? @ -No Were any procedures done? @ -No Diagnosis/symptom? @ Left facial numbness and tingling, hypertension, dizziness, rule out CVA Acute, or Chronic, or Acute on Chronic? @ -Acute Uncomplicated (without systemic symptoms) or Complicated (systemic symptoms)? @ -Complicated Side effects of treatment? @ -No Exacerbation, Progression, or Severe Exacerbation? @ -No Poses a threat to life or bodily function? How? (Chest pain, [place], [place], pneumonia, PE, COPD, DKA, ARF, appy, cholecystitis, CVA, Diverticulitis, Homicidal, Suicidal, threat to staff... and all critical care pts) @ -Yes, CVA - Lab Data Result diagrams: 02/07/23 09:26 02/07/23 09: Lab Results 02/07/23 02/07/23 02/07/23 Range/Units 09:26 09: 09:26 WBC 8.7 (3.8-10.6) k/uL RBC 4.61 (3.80-5.40) m/uL Hgb 14.5 (11.4-16.0) gm/dL Hct 43.5 (34.0-46.0) % MCV 94.5 (80.0-100.0) fL MCH 31.5 (25.0-35.0) pg MCHC 33.3 (31.0-37.0) g/dL RDW 14.1 (11.5-15.5) % Plt Count 148 L (150-450) k/uL MPV 9.5 Neutrophils % 76 % Lymphocytes % 18 % Monocytes % 3 % Eosinophils % 1 % Basophils % 0 % Neutrophils # 6.7 (1.3-7.7) k/uL Lymphocytes # 1.6 (1.0-4.8) k/uL Monocytes # 0.3 (0-1.0) k/uL Eosinophils # 0.1 (0-0.7) k/uL Basophils # 0.0 (0-0.2) k/uL PT 10.6 (10.0-12.5) sec INR 1.0 (<1.2) APTT 24.7 (22.0-30.0) sec Sodium 143 (137-145) mmol/L Potassium 3.2 L (3.5-5.1) mmol/L Chloride 106 (98-107) mmol/L Carbon Dioxide 26 (22-30) mmol/L Anion Gap 11 mmol/L BUN 11 (7-17) mg/dL Creatinine 0.59 (0.52-1.04) mg/dL Est GFR (CKD-EPI)AfAm >90 (>60 ml/min/1.73 sqM) Est GFR (CKD-EPI)NonAf >90 (>60 ml/min/1.73 sqM) Glucose 137 H (74-99) mg/dL Calcium 9.2 (8.4-10.2) mg/dL Total Bilirubin 0.7 (0.2-1.3) mg/dL AST 18 (14-36) U/L ALT 17 (4-34) U/L Alkaline Phosphatase 109 (38-126) U/L Troponin I (0.000-0.034) ng/mL Total Protein 6.8 (6.3-8.2) g/dL Albumin 4.1 (3.5-5.0) g/dL 02/07/23 Range/Units 09:26 WBC (3.8-10.6) k/uL RBC (3.80-5.40) m/uL Hgb (11.4-16.0) gm/dL Hct (34.0-46.0) % MCV (80.0-100.0) fL MCH (25.0-35.0) pg MCHC (31.0-37.0) g/dL RDW (11.5-15.5) % Plt Count (150-450) k/uL MPV Neutrophils % % Lymphocytes % % Monocytes % % Eosinophils % % Basophils % % Neutrophils # (1.3-7.7) k/uL Lymphocytes # (1.0-4.8) k/uL Monocytes # (0-1.0) k/uL Eosinophils # (0-0.7) k/uL Basophils # (0-0.2) k/uL PT (10.0-12.5) sec INR (<1.2) APTT (22.0-30.0) sec Sodium (137-145) mmol/L Potassium (3.5-5.1) mmol/L Chloride (98-107) mmol/L Carbon Dioxide (22-30) mmol/L Anion Gap mmol/L BUN (7-17) mg/dL Creatinine (0.52-1.04) mg/dL Est GFR (CKD-EPI)AfAm (>60 ml/min/1.73 sqM) Est GFR (CKD-EPI)NonAf (>60 ml/min/1.73 sqM) Glucose (74-99) mg/dL Calcium (8.4-10.2) mg/dL Total Bilirubin (0.2-1.3) mg/dL AST (14-36) U/L ALT (4-34) U/L Alkaline Phosphatase (38-126) U/L Troponin I <0.012 (0.000-0.034) ng/mL Total Protein (6.3-8.2) g/dL Albumin (3.5-5.0) g/dL Disposition Clinical Impression: CVA (cerebral vascular accident) Disposition: ADMITTED IP TO THIS [facility] Condition: Stable Is patient prescribed a controlled substance at d/c from ED?: No Referrals: Minh Martinez DO [Primary Care Provider] - 1-2 days Time of Disposition: 10:16
[2023-02-07 09:41] LABS: Basophils % (A) 0 %; Eosinophils # (A) 0.1 k/uL (0-0.7); Eosinophils % (A) 1 %; HCT 43.5 % (34.0-46.0); HGB 14.5 gm/dL (11.4-16.0); Lymphocytes # (A) 1.6 k/uL (1.0-4.8); Lymphocytes % (A) 18 %; MCH 31.5 pg (25.0-35.0); MCHC 33.3 g/dL (31.0-37.0); MCV 94.5 fL (80.0-100.0); Mean Platelet Volume 9.5; Monocytes # (A) 0.3 k/uL (0-1.0); Monocytes % (A) 3 %; Neutrophils # (A) 6.7 k/uL (1.3-7.7); Neutrophils % (A) 76 %; Platelet Count 148 k/uL (150-450); RBC 4.61 m/uL (3.80-5.40); RDW 14.1 % (11.5-15.5); WBC 8.7 k/uL (3.8-10.6)
[2023-02-07 09:50] LABS: ALT 17 U/L (4-34); AST 18 U/L (14-36); African American GFR (CKD) >90 (>60 ml/min/1.73 sqM); Albumin 4.1 g/dL (3.5-5.0); Alkaline Phosphatase 109 U/L (38-126); Anion Gap 11 mmol/L; Blood Urea Nitrogen 11 mg/dL (7-17); Calcium 9.2 mg/dL (8.4-10.2); Carbon Dioxide 26 mmol/L (22-30); Chloride 106 mmol/L (98-107); Glucose 137 mg/dL (74-99); Non-African American GFR(CKD) >90 (>60 ml/min/1.73 sqM); Potassium 3.2 mmol/L (3.5-5.1); Sodium 143 mmol/L (137-145); Total Bilirubin 0.7 mg/dL (0.2-1.3); Total Protein 6.8 g/dL (6.3-8.2)
--- NOTE | 2023-02-07 09:55 | XR ---
EXAMINATION TYPE: XR chest 2V DATE OF EXAM: 02/07/2023 COMPARISON: NONE TECHNIQUE: PA and lateral views submitted. HISTORY: Hypertension FINDINGS: The lungs are clear and there is no pneumothorax, pleural effusion, or focal pneumonia. Heart size normal and no overt failure. Osseous structures demonstrate hypertrophic and degenerative changes of the spine. AC joint arthropathy with diffuse osteopenia. Limited inspiration. Coarsened interstitial markings. IMPRESSION: 1. No acute process. Suspect COPD and chronic interstitial lung lung disease.
[2023-02-07] MEDS ORDERED: POTASSIUM CHLORIDE ER 20 MEQ TAB.ER PO STA (09:58)
--- NOTE | 2023-02-07 10:01 | CT ---
EXAMINATION TYPE: CT brain wo con CT DLP: 1131.7 mGycm, Automated exposure control for dose reduction was used. DATE OF EXAM: 02/07/2023 9:55 AM COMPARISON: CT brain 05/13/2012 CLINICAL INDICATION:Female, 73 years old with history of Neuro deficit, acute, stroke suspected, dizz iness, htn TECHNIQUE: Brain: Multiple axial CT images of the brain were obtained without IV contrast. Coronal and sagittal reformats reviewed. FINDINGS: Brain: Extra-axial spaces: No abnormal extra-axial fluid collections. Ventricular system: Within normal limits Cerebral parenchyma: Mild cerebral atrophy. No acute intraparenchymal hemorrhage or mass effect. The morrison-white junction is well differentiated. Scattered hypoattenuating areas are seen within the whit e matter. Cerebellum: Unremarkable. Mass effect: No evidence of midline shift. Intracranial vasculature: Atherosclerotic calcifications of the intracranial vessels. Soft tissues: Normal. Calvarium/osseous structures: No depressed skull fracture. Paranasal sinuses and mastoid air cells: Clear Visualized orbits: Right aphakia IMPRESSION: 1. No acute intracranial process. 2. Nonspecific white matter changes, likely secondary to chronic small vessel ischemic disease.
[2023-02-07 10:02] LABS: Partial Thromboplastin Time 24.7 sec (22.0-30.0); Prothrombin Time 10.6 sec (10.0-12.5)
[2023-02-07] MEDS ORDERED: ASPIRIN 325 MG TAB PO STA (10:07)
[2023-02-07] MEDS ORDERED: SODIUM CHLORIDE 0.9% 1,000 ML IV SCH (10:15)
--- NOTE | 2023-02-07 13:13 | US ---
EXAMINATION TYPE: US carotid duplex BILAT DATE OF EXAM: 02/07/2023 COMPARISON: NONE CLINICAL INDICATION: Female, 73 years old with history of Stenosis; Left CCA stent. Dizziness. TECHNIQUE: Carotid duplex ultrasound examination. Indirect Doppler criteria was utilized. FINDINGS: EXAM MEASUREMENTS: RIGHT: Peak Systolic Velocity (PSV) cm/sec ----- Right CCA: 94.1 ----- Right ICA: 117.3 ----- Right ECA: 113.4 ICA/CCA ratio: 1.2 RIGHT: End Diastole cm/sec ----- Right CCA: 17.1 ----- Right ICA: 29.2 ----- Right ECA: 13.7 LEFT: Peak Systolic Velocity (PSV) cm/sec ----- Left CCA: 100.0 ----- Left ICA: 122.0 ----- Left ECA: 82.7 ICA/CCA ratio: 1.2 LEFT: End Diastole cm/sec ----- Left CCA: 16.7 ----- Left ICA: 27.4 ----- Left ECA: 8.9 VERTEBRALS (direction of flow): Right Vertebral: Antegrade Left Vertebral: Antegrade Rhythm: Normal NCA CERTIFIED CONCIERGE NOTES: Left CCA stent seen. Plaque seen in right bulb. No elevated velocities or signif icant stenosis. IMPRESSION: Atheromatous plaquing bilaterally without significant flow-limiting stenosis. Criteria for Assigning % of Stenosis / Diameter reduction (Estimation based on the indirect measurements of the internal carotid artery velocities (ICA PSV). 1. Normal (no stenosis)=ICA PSV < 125 cm/s: ratio < 2.0: ICA EDV<40 cm/s. 2. Less than 50% stenosis=ICA PSV < 125 cm/s: ratio < 2.0: ICA EDV<40 cm/s. 3. 50 to 69% stenosis=ICA PSV of 125 to 230 cm/s: ration 2.0 ? 4.0: ICA EDV 40-100 cm/s. 4. Greater than 70% stenosis to near occlusion= ICA PSV > 230 cm/s: ratio > 4.0: ICA EDV > 100 cm/s. 5. Near occlusion= ICA PSV velocities may be low or undetectable: variable ratio and ICA EDV. 6. Total occlusion=unable to detect flow.
[2023-02-07] MEDS: PANTOPRAZOLE 40 MG TABLET PO SCH (14:38)
[2023-02-07] MEDS: ATORVASTATIN 40 MG TAB PO SCH (14:38)
[2023-02-07] MEDS: CLOPIDOGREL 75 MG TAB PO SCH (14:38)
--- NOTE | 2023-02-07 15:09 | P.HPIM ---
History of Present Illness H&P Date: 02/07/23 Chief Complaint: Dizzy This is a pleasant 73-year-old patient follows Dr. Martinez. Patient presented, having yesterday started getting dizzy. No trouble walking. No double vision. No weakness focally or change in vision. The patient was noted in the 140s. About 2 years ago patient's was slowly taken off of blood pressure medications as a blood pressure is going down. Patient does take aspirin and Plavix for left carotid stent by Dr. Cevallos. P also felt some numbness or tingling on the left side of the face. Patient is accompanied by a friend in the ER. Review of systems: GEN.: Tired EYES: None HEENT: None NECK: None RESPIRATORY: Chronically does get a bit short-winded on walking. CARDIOVASCULAR: None GASTROINTESTINAL: Heartburn GENITOURINARY: Incontinence MUSCULOSKELETAL: Arthritis LYMPHATICS: None HEMATOLOGICAL: None PSYCHIATRY: None NEUROLOGICAL: None Past medical history to include: Left carotid stenosis with stent placement, hyperlipidemia, osteoarthritis, kidney stones, hypertension was taken off medications, anxiety. Social history: Lives with her daughter. Smoked a pack a day for [address] Dominguez a year ago. Alcohol occasionally. Physical examination: VITAL SIGNS: 97.4, 98, 18, 156/77, 96% room air GENERAL: BMI 36.6, sitting edge of bed awake comfortable. EYES: Pupils equal. Conjunctiva normal. HEENT: External appearance of nose and ears normal, oral cavity grossly normal. NECK: JVD not raised; masses not palpable. HEART: First and second heart sounds are normal; no edema. LUNGS: Respiratory rate normal; clear to auscultation. ABDOMEN: Soft, nontender, liver spleen not palpable, no masses palpable. PSYCH: Alert and oriented x3; mood and affect normal. MUSCULOSKELETAL:No Clubbing/cyanosis;muscles-grossly intact. OA NEUROLOGICAL: Cranial nerves grossly intact; no facial asymmetry, power and sensation grossly intact. LYMPHATICS: No lymph nodes palpable in the axilla and neck INVESTIGATIONS, reviewed in the clinical context: White count 8.7 hemoglobin 14.5 platelets 148 sodium 143 potassium 3.2 cre atinine 0.59 Troponin I less than 0.012 EKG tracing personally reviewed by me-ST segment depression in inferolateral leads Chest x-ray film personally reviewed by me-borderline cardiomegaly. Some june kground interstitial prominence. Computed tomography scan of the brain: Chronic changes Carotid Doppler: Atheromatous plaquing bilateral. No significant stenosis. Assessment and plan: -Patient presented 1 day of dizziness and some numbness on the left side of the face. No other focal symptoms. Accompanied by slightly elevated blood pressure. Possible TIA versus stroke. Continue on aspirin and Plavix. Lipitor. MRI of the brain with and without contrast ordered. Neurology consultation. 2-D echocardiogram. -Obesity BMI 36.6 Weight loss measures -GERD PPI -Chronic urinary stress incontinence -Primary osteoarthritis multiple joints bilaterally Tylenol as needed -Left carotid artery stenosis with a stent placed by Dr. Cevallos previously. Continue aspirin and Plavix -Essential hypertension Permissive hypertension. Symptoms started this morning. Start lisinopril hydrochlorothiazide 02/02.5 tomorrow morning -COPD with symptoms mild. An ex-smoker Albuterol when necessary Care was discussed with the patient and friend at the bedside. Questions answered. Neurology consulted. Subcu Lovenox. Lipid panel. 2-D echocardiogram. Past Medical History Past Medical History: Hyperlipidemia Additional Past Medical History / Comment(s): left carotid decreased flow per scan, pt denies sx. arthritis in spine and hips, Hx of kidney stones. Stent left Carotid History of Any Multi-Drug Resistant Organisms: None Reported Past Surgical History: Cholecystectomy, Tonsillectomy Additional Past Surgical History / Comment(s): rt cataract removed and repaid or torn retina. left shoulder bone spur removed. Couple D&Cs, cyst removed above rt eye. cyst removed rt ovary Past Anesthesia/Blood Transfusion Reactions: No Reported Reaction Additional Past Anesthesia/Blood Transfusion Reaction / Comment(s): no blood transfusion issues Past Psychological History: Anxiety Smoking Status: Former smoker Past Alcohol Use History: Occasional Past Drug Use History: None Reported - Past Family History Father Family Medical History: Cancer Mother Family Medical History: Coronary Artery Disease (CAD) Daughter(s) Additional Family Medical History / Comment(s): blood clot -leg Medications and Allergies Home Medications Medication Instructions Recorded Confirmed Type Aspirin 81 mg PO DAILY 12/23/21 02/07/23 History Clopidogrel [Plavix] 75 mg PO DAILY 12/23/21 02/07/23 History Unk Vitamin B12 1 tab PO DAILY 12/23/21 02/07/23 History Unk Vitamin D3 1 tab PO DAILY 12/23/21 02/07/23 History Atorvastatin [Lipitor] 40 mg PO DAILY 02/07/23 02/07/23 History Omeprazole Magnesium [PriLOSEC OTC] 20 mg PO DAILY 02/07/23 02/07/23 History Allergies Allergy/AdvReac Type Severity Reaction Status Date / Time Beta-Blockers Allergy Rash/Hives Verified 02/07/23 11:03 (Beta-Adrenergic Bloc Physical Exam Vitals: Vital Signs Temp Pulse Resp BP Pulse Ox 02/07/23 10:43 98 F 78 16 156/82 96 02/07/23 08:49 97.4 F L 98 18 156/77 96 Intake and Output 02/06/23 02/07/23 02/07/23 22:59 06:59 14:59 Other: Weight 99.79 kg Results CBC & Chem 7: 02/07/23 09:26 02/07/23 09:26 Labs: Abnormal Lab Results - Last 24 Hours (Table) 02/07/23 02/07/23 Range/Units 09:26 09:26 Plt Count 148 L (150-450) k/uL Potassium 3.2 L (3.5-5.1) mmol/L Glucose 137 H (74-99) mg/dL
[2023-02-07] MEDS: ENOXAPARIN 40 MG/0.4 ML SYRINGE SQ SCH (16:26)
--- NOTE | 2023-02-07 17:40 | P.CNNES ---
History of Present Illness Consult date: 02/07/23 Requesting physician: Rigo Willis Reason for Consult: CVA History of Present Illness: Patient is a 73-year-old right-handed female with history of hypertension, hyperlipidemia, left carotid stenting, came to the hospital early this morning today at 8:32 AM for dizziness and paresthesias. 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 Later when she woke up, she checked her blood pressure, was about 172/103. She was noticing dizziness when she was bending down, or looking upwards. Otherwise she was fine, and she went to sleep at about 8:30 PM. She may have gone to sleep by 8:45 AM, woke up at 11:30 PM to use the restroom and she was fine. She finally woke up at 4 AM, had 2 cups of coffee, was sitting watching news when at around 5:30 AM she noticed tingling in the left side of the face, pointing to the left cheek region. She also noticed tingling of fingertips of both hands. She denied any focal weakness, any incoordination of the extremities on any problem with balance, slurred speech or any visual disturbance. She got concerned and decided to come to the ER. Patient denies any previous history of vertigo. Patient states that once she was dizzy, she has to sit down, and try to focus and it takes a while to go away. The dizziness/vertigo was occurring when she was bending over to wash her legs, putting her head backwards to rinse her head she was feeling dizzy. If she lays down in the bed, she feels dizzy and also when she rolls over in the bed. She denies ever any previous history of vertigo. Vital signs on arrival blood pressure 156/77, pulse rate 98, temperature 97.4. Blood test shows normal CBC, PT/PTT, normal CMP, with potassium 3.2. Troponin negative. CT head showed no acute intracranial process. Nonspecific white matter changes, likely secondary to chronic small vessel ischemic disease. I personally reviewed CT head, agree with the findings. On my review, there is evidence of impacted cerumen, particularly on the right side. EKG shows sinus rhythm chest x-ray shows no acute process. Suspect COPD and chronic inte rstitial lung disease. Patient has history of hypertension for which she was taking 3 medications. After she retired 3 years ago, about 6 months later she gradually stopped taking all blood pressure medication because her blood pressure was dropping too low. For last 2 years, she has not been on any blood pressure medication. Patient denies diabetes. She does have hyperlipidemia. She has history of left ICA stent by Dr. Cevallos in December 2021. She has smoked 1 pack per day for 50 years, quit 1 year ago. Patient's home medications include aspirin 81 mg, vitamin B12, Plavix 75 mg, Li pitor 40 mg, omeprazole and vitamin D3. Review of Systems Constitutional: Reports weight gain, Denies chills, Denies fever Eyes: denies blurred vision, denies diplopia, denies pain Ears: deny: decreased hearing, ear discharge, earache, tinnitus Ears, nose, mouth and throat: Reports nasal congestion (Yesterday morning. ), Reports vertigo, Denies headache, Denies post-nasal drip, Denies sore throat Cardiovascular: Reports dyspnea on exertion, Denies chest pain, Denies shortness of breath Respiratory: Denies cough, Denies excessive sputum Gastrointestinal: Reports nausea (With dizziness), Denies abdominal pain, Denies diarrhea (More frequent bowel movements lately), Denies vomiting Genitourinary: Denies dysuria, Denies hematuria Musculoskeletal: Reports low back pain, Denies myalgias, Denies neck pain Integumentary: Denies pruritus, Denies rash Neurological: Reports as per HPI Psychiatric: Reports anxiety, Denies depression Endocrine: Reports weight change, Denies fatigue Hematologic/Lymphatic: Reports easy bleeding, Reports easy bruising Past Medical History Past Medical History: Hyperlipidemia Additional Past Medical History / Comment(s): left carotid decreased flow per scan, pt denies sx. arthritis in spine and hips, Hx of kidney stones. Stent left Carotid History of Any Multi-Drug Resistant Organisms: None Reported Past Surgical History: Cholecystectomy, Tonsillectomy Additional Past Surgical History / Comment(s): rt cataract removed and repaid or torn retina. left shoulder bone spur removed. Couple D&Cs, cyst removed above rt eye. cyst removed rt ovary Past Anesthesia/Blood Transfusion Reactions: No Reported Reaction Additional Past Anesthesia/Blood Transfusion Reaction / Comment(s): no blood transfusion issues Past Psychological History: Anxiety Smoking Status: Former smoker Past Alcohol Use History: Occasional Past Drug Use History: None Reported - Past Family History Father Family Medical History: Cancer Mother Family Medical History: Coronary Artery Disease (CAD) Daughter(s) Additional Family Medical History / Comment(s): blood clot -leg Medications and Allergies Home Medications Medication Instructions Recorded Confirmed Type Aspirin 81 mg PO DAILY 12/23/21 02/07/23 History Clopidogrel [Plavix] 75 mg PO DAILY 12/23/21 02/07/23 History Unk Vitamin B12 1 tab PO DAILY 12/23/21 02/07/23 History Unk Vitamin D3 1 tab PO DAILY 12/23/21 02/07/23 History Atorvastatin [Lipitor] 40 mg PO DAILY 02/07/23 02/07/23 History Omeprazole Magnesium [PriLOSEC OTC] 20 mg PO DAILY 02/07/23 02/07/23 History Allergies Allergy/AdvReac Type Severity Reaction Status Date / Time Beta-Blockers Allergy Rash/Hives Verified 02/07/23 11:03 (Beta-Adrenergic Bloc Physical Examination - Vital Signs Vital Signs: Vital Signs Temp Pulse Resp BP Pulse Ox 02/07/23 10:43 98 F 78 16 156/82 96 02/07/23 08:49 97.4 F L 98 18 156/77 96 Intake and Output 02/06/23 02/07/23 02/07/23 22:59 06:59 14:59 Other: Weight 99.79 kg Patient is an elderly female, very pleasant, in no acute distress. Patient is alert awake oriented to time place and person. Speech and language functions are normal. Patient can name and repeat very well. No aphasia or dysarthria. Attention, concentration and fund of knowledge is adequate. On cranial nerve examination, pupils are equal, round and reacting to light, visual mays are full on confrontation, with no neglect on double simultaneous stimulation. Extraocular muscles are intact with no nystagmus. Face is symmetric, tongue protrudes to the midline. Palatal elevation and sensation normal, hearing is at least moderately decreased for finger rubbing on the right, mildly on the left but fairly normal for routine conversation. Otologic examination revealed large amount of impacted wax bilaterally. I was not able to see the eardrums on either side. Her shoulder shrug normal, facial sensation normal. On muscle strength testing, there is no pronator drift and the strength is normal in arms and legs distally and proximally. Deep tendon reflexes are sy2+ at the biceps, 2+ brachioradialis, 3 at the knees, 2+ ankles and plantars downgoing. Sensory to touch is equal with no neglect on double simultaneous stimulation. Cerebellar function showed no ataxia for [id number] testing. No dysdiadochokinesia. No ataxia for [id number]-[id number] testing on either side. Tone and bulk of muscles normal. Gait deferred.. On general examination, there is no carotid bruit or murmur, S1-S2 audible. Chest is clear on consultation. Abdomen is soft nontender. No organomegaly, bowel sounds present. Peripheral pulses are present. No edema. 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 Exact cause uncertain. Differential includes possibly related to uncontrolled blood pressure versus wax impaction. Less likely TIA/CVA. Patient has clinical evidence of impacted cerumen in both ears, worse on the right, which may be contributing to the vertigo. * Bilateral fingertip and left cheek paresthesias since early this morning, unclear cause, rule out CVA * History of hypertension, off medication for 2-1/2 years * Hyperlipidemia * History of left ICA stenting * X tobacco use, quit 1 year ago. Plan: * MRI of the brain initiated in the ED, we will follow. Patient's current NIH stroke scale is 0. Patient was not a candidate for TPA, as she woke up with the symptoms and last known well was > 4.5 hours, and low NIH stroke scale. * 2-D echo with bubble study to rule out PFO * Carotid Doppler revealed atheromatous plaquing bilaterally without significant flow limiting stenosis. Antegrade flow in both vertebral arteries. * Fasting a.m. lipid panel * Hemoglobin A1c * Patient has history of hypertension, currently not on any medication for last 2.5 years. Probably need to resume blood pressure medication. Optimize control of blood pressure to target <130/80 * Close neuro checks. * Continue aspirin 81 mg, Plavix 75 mg and Lipitor 40 mg as she was taking at home. * Recommend disimpaction of wax from both ears. This may be performed by primary physician, or may consider ENT consult. * Telemetry monitoring rule out any arrhythmia * DVT prophylaxis: Lovenox 40 mg subcu daily. * Neurology will continue to follow. Thank you for the consult.
[2023-02-07] MEDS ORDERED: LORazepam 2 MG/ML INJ IV PRN (18:05)
[2023-02-08] MEDS: PANTOPRAZOLE 40 MG TABLET PO SCH (08:29)
[2023-02-08] MEDS ORDERED: ASPIRIN 325 MG TAB PO SCH (09:00)
[2023-02-08] MEDS: CLOPIDOGREL 75 MG TAB PO SCH (09:31)
[2023-02-08] MEDS: ENOXAPARIN 40 MG/0.4 ML SYRINGE SQ SCH (09:31)
[2023-02-08] MEDS: ATORVASTATIN 40 MG TAB PO SCH (09:31)
[2023-02-08] MEDS: ASPIRIN 81 MG PO SCH (09:49)
[2023-02-08] MEDS: LISINOPRIL-HCTZ 10-12.5 MG 1 EACH TAB PO SCH (10:27)
[2023-02-08 11:08] LABS: Chol/HDL Ratio 3.57 Ratio; VLDL Calculation 15.98 mg/dL (5.00-40.00)
[2023-02-08 16:59] LABS: Basophils % (A) 0 %; Eosinophils # (A) 0.2 k/uL (0-0.7); Eosinophils % (A) 2 %; HCT 41.1 % (34.0-46.0); HGB 13.7 gm/dL (11.4-16.0); Lymphocytes # (A) 2.6 k/uL (1.0-4.8); Lymphocytes % (A) 28 %; MCH 31.6 pg (25.0-35.0); MCHC 33.3 g/dL (31.0-37.0); MCV 94.9 fL (80.0-100.0); Mean Platelet Volume 9.3; Monocytes # (A) 0.3 k/uL (0-1.0); Monocytes % (A) 3 %; Neutrophils % (A) 65 %; Platelet Count 153 k/uL (150-450); RBC 4.33 m/uL (3.80-5.40); RDW 14.1 % (11.5-15.5); WBC 9.2 k/uL (3.8-10.6)
[2023-02-08 17:20] LABS: African American GFR (CKD) >90 (>60 ml/min/1.73 sqM); Anion Gap 11 mmol/L; Blood Urea Nitrogen 10 mg/dL (7-17); Calcium 9.2 mg/dL (8.4-10.2); Carbon Dioxide 20 mmol/L (22-30); Chloride 109 mmol/L (98-107); Glucose 100 mg/dL (74-99); Non-African American GFR(CKD) >90 (>60 ml/min/1.73 sqM); Sodium 140 mmol/L (137-145)
[2023-02-08 17:37] LABS: Potassium 3.7 mmol/L (3.5-5.1)
[2023-02-08] MEDS: POTASSIUM CHLORIDE ER 20 MEQ TAB.ER PO SCH ×2 (17:45→18:44)
--- NOTE | 2023-02-08 17:45 | P.PN ---
Subjective Progress Note Date: 02/08/23 Patient was seen for a follow-up patient states that she is doing much better. Her dizziness is almost resolved. Still happens, but "nothing like how it was yesterday". Patient says the tingling of the cheek and fingertips went away this morning on waking up. No new symptoms. Patient has slight hypokalemia, which may be related to the use of Lasix. Objective - Vital Signs Vital signs: Vital Signs Temp 98.3 F 02/08/23 08:00 Pulse 72 02/08/23 08:00 Resp 16 02/08/23 08:00 BP 107/59 02/08/23 08:00 Pulse Ox 98 02/08/23 08:00 FiO2 Intake & Output 02/07/23 02/08/23 02/08/23 18:59 06:59 18:59 Weight 99.79 kg - Exam Mental status, speech and language functions are normal. Muscle strength is normal. No ataxia. Sensations equal. Cranial nerves normal. Otologic exemption was again performed and is evidence of significant wax impaction. 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 Exact cause uncertain. Differential includes possibly related to uncontrolled blood pressure versus wax impaction. Less likely TIA/CVA. Patient has cl inical evidence of impacted cerumen in both ears, worse on the right, which may be contributing to the vertigo. * Bilateral fingertip and left cheek paresthesias since early this morning, possible TIA. Doubt CVA. Patient's current NIH stroke scale is 0.. * History of hypertension, off medication for 2-1/2 years * Hyperlipidemia * History of left ICA stenting * X tobacco use, quit 1 year ago. Plan: * MRI of the brain still outstanding. * 2-D echo with bubble study to rule out PFO. Completed, results still pending. * Carotid Doppler revealed atheromatous plaquing bilaterally without significant flow limiting stenosis. Antegrade flow in both vertebral arteries. * Fasting a.m. lipid panel with cholesterol 132, LDL 79, HDL 37, triglycerides 79. Continue Lipitor 40 mg daily. * Hemoglobin A1c 6.2. Recommend healthy lifestyles, dietary modification. Follow-up A1c every 6-12 months. * Patient has history of hypertension, currently not on any medication for last 2.5 years. Probably need to resume blood pressure medication. Optimize contr ol of blood pressure to target <130/80 * Close neuro checks. * Continue aspirin 81 mg, Plavix 75 mg and Lipitor 40 mg as she was taking at home. * Recommend disimpaction of wax from both ears. This may be performed by primary physician, or may consider ENT consult. * Telemetry monitoring rule out any arrhythmia * DVT prophylaxis: Lovenox 40 mg subcu daily. * Neurologically clear for discharge, if 2-D echo comes back normal.
--- NOTE | 2023-02-08 17:52 | P.PN ---
Progress Note - Text Progress Note Date: 02/08/23 Chief Complaint: Dizzy This is a pleasant 73-year-old patient follows Dr. Martinez. Patient presented, having yesterday started getting dizzy. No trouble walking. No double vision. No weakness focally or change in vision. The patient was noted in the 140s. About 2 years ago patient's was slowly taken off of blood pressure medications as a blood pressure is going down. Patient does take aspirin and Plavix for left carotid stent by Dr. Cevallos. P also felt some numbness or tingling on the left side of the face. Patient is accompanied by a friend in the ER. February 08: Blood pressure better this morning. No further dizziness. No facial numbness. Less likely to be TIA/stroke. Pending 2-D echo and MRI of the brain. Dr. Guzman also found somecerumen in the ears, especially the right. Active Medications Aspirin (Aspirin 325 Mg Tab) 325 mg PO DAILY [facility] Last Admin: 02/08/23 09:31 Dose: 325 mg Aspirin (Aspirin 81 Mg) 81 mg PO DAILY [facility] Last Admin: 02/08/23 09:49 Dose: Not Given Atorvastatin Calcium (Atorvastatin 40 Mg Tab) 40 mg PO DAILY [facility] Last Admin: 02/08/23 09:31 Dose: 40 mg Clopidogrel Bisulfate (Clopidogrel 75 Mg Tab) 75 mg PO DAILY [facility] Last Admin: 02/08/23 09:31 Dose: 75 mg Enoxaparin Sodium (Enoxaparin 40 Mg/0.4 Ml Syringe) 40 mg SQ DAILY [facility] Last Admin: 02/08/23 09:31 Dose: 40 mg Lisinopril/HCTZ (Lisinopril-Hctz 10-12.5 Mg 1 Each Tab) 1 each PO DAILY [facility] Last Admin: 02/08/23 10:27 Dose: 1 each Lorazepam (Lorazepam 2 Mg/Ml Inj) 1 mg IV ONCE PRN PRN Reason: Agitation or Acute Anxiety Pantoprazole Sodium (Pantoprazole 40 Mg Tablet) 40 mg PO AC-BRKFST [facility] Last Admin: 02/08/23 08:29 Dose: 40 mg Potassium Chloride (Potassium Chloride Er 20 Meq Tab.Er) 20 meq PO Q1HR [facility]; Protocol Stop: 02/08/23 19:01 Last Admin: 02/08/23 17:45 Dose: 20 meq Past medical history to include: Left carotid stenosis with stent placement, hyperlipidemia, osteoarthritis, kidney stones, hypertension was taken off medications, anxiety. Social history: Lives with her daughter. Smoked a pack a day for [address] Dominguez a year ago. Alcohol occasionally. Physical examination: VITAL SIGNS: 98.3, 72, 16, 107/59, 98% room air GENERAL: sitting edge of bed awake comfortable. EYES: Pupils equal. Conjunctiva normal. HEENT: External appearance of nose and ears normal, oral cavity grossly normal. NECK: JVD not raised; masses not palpable. HEART: First and second heart sounds are normal; no edema. LUNGS: Respiratory rate normal; clear to auscultation. ABDOMEN: Soft, nontender, liver spleen not palpable, no masses palpable. PSYCH: Alert and oriented x3; mood and affect normal. MUSCULOSKELETAL:No Clubbing/cyanosis;muscles-grossly intact. OA NEUROLOGICAL: Cranial nerves grossly intact; no facial asymmetry, power and sensation grossly intact. INVESTIGATIONS, reviewed in the clinical context: February 08: White count 9.2 hemoglobin 10.7 potassium 3.7 creatinine 0.5 for LDL 79 White count 8.7 hemoglobin 14.5 platelets 148 sodium 143 potassium 3.2 creatinine 0.59 Troponin I less than 0.012 EKG tracing personally reviewed by me-ST segment depression in inferolateral leads Chest x-ray film personally reviewed by me-borderline cardiomegaly. Some background interstitial prominence. Computed tomography scan of the brain: Chronic changes Carotid Doppler: Atheromatous plaquing bilateral. No significant stenosis. Assessment and plan: -Patient presented 1 day of dizziness and some numbness on the left side of the face. No other focal symptoms. Accompanied by slightly elevated blood pressure. Possible TIA versus stroke. Continue on aspirin and Plavix. Lipitor. MRI of the brain with and without contrast, 2-D echo was pending Neurology following -Obesity BMI 36.6 Weight loss measures -GERD PPI -Chronic urinary stress incontinence -Primary osteoarthritis multiple joints bilaterally Tylenol as needed -Left carotid artery stenosis with a stent placed by Dr. Cevallos previously. Continue aspirin and Plavix -Essential hypertension lisinopril hydrochlorothiazide 10/12.5 tomorrow morning -COPD with symptoms mild. An ex-smoker Albuterol when necessary Discussed with patient. Await further testing.
[2023-02-09] MEDS: PANTOPRAZOLE 40 MG TABLET PO SCH (07:06)
[2023-02-09] MEDS: CLOPIDOGREL 75 MG TAB PO SCH (08:11)
[2023-02-09] MEDS: ATORVASTATIN 40 MG TAB PO SCH (08:11)
[2023-02-09] MEDS: ASPIRIN 81 MG PO SCH (08:12)
[2023-02-09] MEDS: ENOXAPARIN 40 MG/0.4 ML SYRINGE SQ SCH (08:12)
[2023-02-09] MEDS: LISINOPRIL-HCTZ 10-12.5 MG 1 EACH TAB PO SCH (08:12)
[2023-02-09 08:19] VITALS: RESP 20; TEMP 97.9
--- NOTE | 2023-02-09 08:55 | CA ---
Transthoracic Echo Report Name: Ciera Cavazos Age: 73 Gender: F : 1950 Exam Date: 02/08/2023 09:53 Exam Location: [place] [facility] Ht (in): 65 Wt (lb): 220 Ordering Physician: Hector Chris MD Attending/Referring Phys: Applications Engineering Manager Mulugeta Vela Procedure CPT: Indications: abnormal ekg Cardiac Hx: Technical Quality: Technically difficult study Contrast 1: Lumason Total Dose (mL): 5 Contrast 2: Total Dose (mL): MEASUREMENTS (Male / Female) Normal Values 2D ECHO LV Diastolic Diameter PLAX 4.2 cm 4.2 - 5.9 / 3.9 - 5.3 cm LV Systolic Diameter PLAX 3.2 cm IVS Diastolic Thickness 1.0 cm 0.6 - 1.0 / 0.6 - 0.9 cm LVPW Diastolic Thickness 1.1 cm 0.6 - 1.0 / 0.6 - 0.9 cm LV Relative Wall Thickness 0.5 RV Internal Dim ED PLAX 3.5 cm LVOT Diameter 2.0 cm Aortic Root Diameter 2.4 cm LA Systolic Diameter LX 2.9 cm 3.0 - 4.0 / 2.7 - 3.8 cm LV Diastolic Volume MOD BP 40.9 cm??? 67 - 155 / 56 - 104 cm??? LV Systolic Volume MOD BP 17.6 cm??? 22 - 58 / 19 - 49 cm??? LV Ejection Fraction MOD BP 57.0 % >= 55 % LV Diastolic Volume MOD 4C 49.4 cm??? LV Systolic Volume MOD 4C 18.7 cm??? LV Ejection Fraction MOD 4C 62.2 % LV Diastolic Length 4C 7.1 cm LV Systolic Length 4C 6.4 cm LV Diastolic Volume MOD 2C 29.8 cm??? LV Systolic Volume MOD 2C 16.3 cm??? LV Ejection Fraction MOD 2C 45.4 % LV Diastolic Length 2C 6.2 cm LV Systolic Length 2C 6.7 cm LA Volume 51.1 cm??? 18 - 58 / 22 - 52 cm??? LA Volume Index 23.4 cm???/m??? 16 - 28 cm???/m??? DOPPLER AV Peak Velocity 157.4 cm/s AV Peak Gradient 9.9 mmHg LVOT Peak Velocity 97.1 cm/s LVOT Peak Gradient 3.8 mmHg LVOT Velocity Time Integral 25.2 cm LVOT Stroke Volume 77.2 cm??? LVOT Stroke Volume Index 37.5 ml/m??? AV Area Cont Eq pk 1.9 cm??? MV Peak Velocity 156.3 cm/s MV Peak Gradient 9.8 mmHg MV Mean Velocity 79.1 cm/s MV Mean Gradient 3.2 mmHg MV Velocity Time Integral 38.0 cm MR Peak Velocity 423.7 cm/s MR Peak Gradient 71.8 mmHg Mitral E Point Velocity 104.8 cm/s Mitral A Point Velocity 125.5 cm/s Mitral E to A Ratio 0.8 MV Deceleration Time 242.5 ms TR Peak Velocity 278.0 cm/s TR Peak Gradient 30.9 mmHg Right Ventricular Systolic Press 35.9 mmHg PV Peak Velocity 96.3 cm/s PV Peak Gradient 3.7 mmHg FINDINGS Left Ventricle Normal LV size and wall thickness.left ventricular ejection fraction is estimated at 50-55 %. Right Ventricle Normal right ventricular size. RVSP= 36mmHg. Right Atrium Normal right atrial size. Left Atrium Normal left atrial size. LA volume index= 25ml/m2 Mitral Valve Structurally normal mitral valve. Mild MR. Aortic Valve Trileaflet aortic valve. Mild AV calcification. Tricuspid Valve Tricuspid valve not well visualized. Mild TR. Pulmonic Valve Pulmonic valve not well visualized. No pulmonic regurgitation. Pericardium Normal pericardium. Aorta Normal size aortic root . CONCLUSIONS Normal LV systolic function Previewed by: Dr. Venancio Flower MD (Electronically Signed) Final Date: 09 February 2023 08:54
[2023-02-09] MEDS ORDERED: LORazepam 2 MG/ML INJ IV PRN (12:57)
--- NOTE | 2023-02-09 15:07 | MR ---
EXAMINATION TYPE: MR brain wo/w con DATE OF EXAM: 02/09/2023 2:45 PM COMPARISON: NONE HISTORY: Left facial paresthesia, dizzy CONTRAST: Patient received 10 mL intravenous Gadavist gadolinium contrast. Multiplanar and multispin-echo imaging of the brain was performed . Pre and post contrast enhanced i mages are obtained. The ventricles, basal cisterns and sulci overlying the cerebral convexities are mildly enlarged. There is evidence of mild periventricular white matter ischemic demyelination. Remote deep white matter insults are also noted. No acute edema is seen on diffusion weighted imaging. There is no evidence for midline shift or mass effect. Acute intracranial hemorrhage or extra-axial collection is not evident. No enhancing lesions are seen. The paranasal sinuses and mastoid air cells are well-aerated. IMPRESSION: Age-related atrophic and chronic small vessel ischemic change. No acute intracranial process at this time. No enhancing lesions are seen.
--- NOTE | 2023-02-09 17:02 | P.PN ---
Subjective Progress Note Date: 02/09/23 Patient was seen for a follow-up patient states that she is doing much better. Her dizziness is almost resolved. Still happens, but "nothing like how it was yesterday". Patient says the tingling of the cheek and fingertips went away this morning on waking up yesterday. No new symptoms. Patient has slight hypokalemia, which may be related to the use of Lasix. Objective - Vital Signs Vital signs: Vital Signs Temp 97.9 F 02/09/23 12:06 Pulse 72 02/09/23 12:06 Resp 20 02/09/23 12:06 BP 132/63 02/09/23 12:06 Pulse Ox 95 02/09/23 12:06 FiO2 Intake & Output 02/08/23 02/09/23 02/09/23 18:59 06:59 18:59 Intake Total 237 360 Balance 237 360 Weight 99.79 kg Intake: Oral 237 360 Other: Voiding Method Toilet Toilet # Voids 1 2 - Exam Mental status, speech and language functions are normal. Muscle strength is normal. No ataxia. Sensations equal. Cranial nerves normal. - Labs CBC & Chem 7: 02/08/23 16:43 02/08/23 16:43 Labs: Abnormal Lab Results - Last 24 Hours (Table) 02/08/23 02/08/23 Range/Units 16:43 16:43 Potassium 3.2 L (3.5-5.1) mmol/L Chloride 109 H (98-107) mmol/L Carbon Dioxide 20 L (22-30) mmol/L Glucose 100 H (74-99) mg/dL Assessment and Plan Assessment: * New onset intermittent positional vertigo one day prior to arrival. Exact cause uncertain. Differential includes possibly related to uncontrolled blood pressure versus wax impaction. Less likely TIA/CVA. Patient has clinical evidence of impacted cerumen in both ears, worse on the right, which may be contributing to the vertigo. * Bilateral fingertip and left cheek paresthesias, now resolved. Doubt CVA. Patient's current NIH stroke scale is 0.. * History of hypertension, off medication for 2-1/2 years * Hyperlipidemia * History of left ICA stenting * X tobacco use, quit 1 year ago. Plan: * MRI of the brain revealed age-related atrophy and chronic small vessel ischemic change. No acute process. I personally reviewed MR agree with the juan pablo loja. * 2-D echo revealed normal left ventricular size and systolic function with EF 50-55%. Normal left atrial size. All valvular structures are normal. * Carotid Doppler revealed atheromatous plaquing bilaterally without significant flow limiting stenosis. Antegrade flow in both vertebral arteries. * Fasting a.m. lipid panel with cholesterol 132, LDL 79, HDL 37, triglycerides 79. Continue Lipitor 40 mg daily. * Hemoglobin A1c 6.2. Recommend healthy lifestyles, dietary modification. Follow-up A1c every 6-12 months. * Patient has history of hypertension, currently not on any medication for last 2.5 years. Probably need to resume blood pressure medication. Optimize control of blood pressure to target <130/80 * Close neuro checks. * Continue aspirin 81 mg, Plavix 75 mg and Lipitor 40 mg as she was taking at home. * Recommend disimpaction of wax from both ears. This may be performed by primary physician, or may consider ENT consult. * Telemetry monitoring rule out any arrhythmia * DVT prophylaxis: Lovenox 40 mg subcu daily. * Neurologically clear for discharge. Discussed with primary physician.
[2023-02-09 17:31] VITALS: BP 118/75; PULSE 74
--- NOTE | 2023-02-09 21:48 | P.DS ---
Providers Date of admission: 02/07/23 10:11 Expected date of discharge: 02/09/23 Attending physician: Hector Chris Consults: 02/07/23 10:13 Consult Physician Routine Consulting Provider: Angelica Steven Consult Reason/Comments: CVA Do you want consulting provider notified?: Yes Primary care physician: [facility] Course: Chief Complaint: Dizzy This is a pleasant 73-year-old patient follows Dr. Martinez. Patient presented, having yesterday started getting dizzy. No trouble walking. No double vision. No weakness focally or change in vision. The patient was noted in the 140s. About 2 years ago patient's was slowly taken off of blood pressure medications as a blood pressure is going down. Patient does take aspirin and Plavix for left carotid stent by Dr. Cevallos. P also felt some numbness or tingling on the left side of the face. Patient is accompanied by a friend in the ER. February 08: Blood pressure better this morning. No further dizziness. No facial numbness. Less likely to be TIA/stroke. Pending 2-D echo and MRI of the brain. Dr. Guzman also found somecerumen in the ears, especially the right. February 09: MRI brain unremarkable. 2-D echocardiogram unremarkable. Patient cleared by Dr. Guzman for discharge. Dizziness felt to be from possible earwax. She has no further dizziness. Past medical history to include: Left carotid stenosis with stent placement, hyperlipidemia, osteoarthritis, kidney stones, hypertension was taken off medications, anxiety. Social history: Lives with her daughter. Smoked a pack a day for [address] Dominguez a year ago. Alcohol occasionally. Physical examination: VITAL SIGNS: 97.9, 74, 20, 118/75, 94% room air GENERAL: Comfortable EYES: Pupils equal. Conjunctiva normal. HEENT: External appearance of nose and ears normal, oral cavity grossly normal. NECK: JVD not raised; masses not palpable. HEART: First and second heart sounds are normal; no edema. LUNGS: Respiratory rate normal; clear to auscultation. ABDOMEN: Soft, nontender, liver spleen not palpable, no masses palpable. PSYCH: Alert and oriented x3; mood and affect normal. MUSCULOSKELETAL:No Clubbing/cyanosis;muscles-grossly intact. OA NEUROLOGICAL: Cranial nerves grossly intact; no facial asymmetry, power and sensation grossly intact. INVESTIGATIONS, reviewed in the clinical context: Brain MRI: Chronic small vessel ischemic changes. Nonacute 2-D echo: EF 50 - 55%. February 08: White count 9.2 hemoglobin 10.7 potassium 3.7 creatinine 0.5 for LDL 79 White count 8.7 hemoglobin 14.5 platelets 148 sodium 143 potassium 3.2 creatinine 0.59 Troponin I less than 0.012 EKG tracing personally reviewed by me-ST segment depression in inferolateral leads Chest x-ray film personally reviewed by me-borderline cardiomegaly. Some background interstitial prominence. Computed tomography scan of the brain: Chronic changes Carotid Doppler: Atheromatous plaquing bilateral. No significant stenosis. Assessment and plan: -Dizziness felt to be from ear wax\cerumen Possible TIA versus stroke. Continue on aspirin and Plavix. Lipitor. MRI of the brain ,, 2-D echo , carotid Doppler: No significance Seen by neurology -Obesity BMI 36.6 Weight loss measures -GERD PPI -Chronic urinary stress incontinence -Primary osteoarthritis multiple joints bilaterally Tylenol as needed -Left carotid artery stenosis with a stent placed by Dr. Cevallos previously. Continue aspirin and Plavix -Essential hypertension lisinopril hydrochlorothiazide 10.5 hs -COPD with symptoms mild. An ex-smoker Albuterol when necessary Disposition: Home Plan - Discharge Summary Discharge Rx Participant: No New Discharge Prescriptions: New Lisinopril-Hctz 10-12.5 mg [Zestoretic 10-12.5] 1 each PO HS #30 tab Continue Aspirin 81 mg PO DAILY Unk Vitamin B12 1 tab PO DAILY Atorvastatin [Lipitor] 40 mg PO DAILY Omeprazole Magnesium [PriLOSEC OTC] 20 mg PO DAILY Clopidogrel [Plavix] 75 mg PO DAILY Unk Vitamin D3 1 tab PO DAILY Discharge Medication List Aspirin 81 mg PO DAILY 12/23/21 [History] Clopidogrel [Plavix] 75 mg PO DAILY 12/23/21 [History] Unk Vitamin B12 1 tab PO DAILY 12/23/21 [History] Unk Vitamin D3 1 tab PO DAILY 12/23/21 [History] Atorvastatin [Lipitor] 40 mg PO DAILY 02/07/23 [History] Omeprazole Magnesium [PriLOSEC OTC] 20 mg PO DAILY 02/07/23 [History] Lisinopril-Hctz 10-12.5 mg [Zestoretic 10-12.5] 1 each PO HS #30 tab 02/09/23 [Rx] Follow up Appointment(s)/Referral(s): Minh Martinez DO [Primary Care Provider] - 1-2 days (please call when office open) Mook Dotson DO [Doctor of Osteopathic Medicine] - 1 Week (please call office when open) Discharge Disposition: HOME SELF-CARE
== END 2023-02-09 18:12 | disposition home or self-care (01) | DRG 156 ==
LOC: EC 08:32 → 3SCARD 10:11
PROVIDERS: ADMIT Hospitalist; ATTEND Hospitalist
DX: H61.23 Impacted cerumen, bilateral (principal); I65.29 Occlusion and stenosis of unspecified carotid artery; I10 Essential (primary) hypertension; M19.91 Primary osteoarthritis, unspecified site; N39.3 Stress incontinence (female) (male); Z68.36 Body mass index [BMI] 36.0-36.9, adult; E66.9 Obesity, unspecified; F41.9 Anxiety disorder, unspecified; I08.1 Rheumatic disorders of both mitral and tricuspid valves; E78.5 Hyperlipidemia, unspecified; M19.90 Unspecified osteoarthritis, unspecified site; Z87.442 Personal history of urinary calculi; Z88.8 Allergy status to other drugs, medicaments and biological substances; Z79.02 Long term (current) use of antithrombotics/antiplatelets; Z79.82 Long term (current) use of aspirin; Z79.899 Other long term (current) drug therapy; Z82.49 Family history of ischemic heart disease and other diseases of the circulatory system; Z90.49 Acquired absence of other specified parts of digestive tract
CPT/HCPCS: 36415; 70450; 70553; 71046; 80048; 80053; 80061; 83036; 84132; 84484; 85025; 85610; 85730; 93306; 93880; 96360; 96361; 96372; 99285

== ENCOUNTER → 2023-11-30 | Outpatient (CLI) | payer MEDICARE, OTHER ==
--- NOTE | 2023-12-28 10:35 | MR ---
Patient: Ciera Cavazos N Ordering Physician: Unknown, Unknown ID: [id number] Phone, Pager: Phone: N/A Pager: N/A : [phone] Age/Gender: 73Y, F Primary Location: N/A Procedure: MR lumbar w/o con S tudy Date: 11/30/2023 5:12:21 AM EXAMINATION TYPE: MR lumbar spine wo con DATE OF EXAM: 12/14/2023 6:02 AM CLINICAL INDICATION: Low back pain COMPARISON: 06/24/2014 TECHNIQUE: Multi planar, multi sequence imaging was performed utilizing: T1-weighted, T2-weighted, a nd turbo inversion recovery imaging of the lumbar spine. IV Contrast: cc . (None if empty) FINDINGS: Alignment: The lumbar vertebral bodies have preserved heights with grade 1 anterolisthesis of L5 on S 1. Cord: The conus medullaris and the distal spinal cord appear unremarkable with regards to their signa l intensity and morphology. Bones/Discs: Mild degeneration changes throughout the spine with osteophyte formation and facet joint arthropathy. Intervertebral disc signal is maintained. No abnormal inversion recovery signal to sugg est bony edema. Perineural cyst posterior to S2 on the right 14 mm and on the left measuring 13 mm. P seudoarthrosis of the spinous processes. T12-L1: No evidence of significant spinal canal stenosis or neural foraminal stenosis. L1-L2: No evidence of significant spinal canal stenosis or neural foraminal stenosis. L2-L3: The central disc extrusion without significant spinal canal stenosis. Appears inferior and inf erior disc migration up to 4 mm inferiorly and 4 mm superiorly. There is mild/moderate bilateral neur al foraminal stenosis. L3-L4: The disc is rounded posterior morphology without significant spinal canal stenosis. Facet join t arthropathy with moderate neural foraminal stenosis. L4-L5: Disc bulge and facet joint arthropathy result in mild to moderate spinal canal and moderate bi lateral neural foraminal stenosis. L5-S1: Disc uncovering from grade 1 anterolisthesis and facet joint arthropathy with mild spinal lucho l stenosis and mild to moderate bilateral neural foraminal stenosis. No significant spinal canal or neural foraminal stenosis in the remainder of the visualized levels. Other findings: None. IMPRESSION: 1. L2-L3 disc extrusion with inferior and superior migration of disc material, 5 mm inferiorly and 4 mm superiorly. Findings unchanged from 06/24/2014. 2. No evidence of significant spinal canal stenosis. 3. Mild disc degeneration with associated osteoarthritic changes. 4. Grade 1 anterolisthesis of L5 on S1 unchanged from prior. 5. Pseudoarthrosis of the spinous process correlate for Baastrup's disease.
== END | disposition home or self-care (01) ==
LOC: RADMRIMAIN 05:56
PROVIDERS: ATTEND Family Medicine
DX: M43.17 Spondylolisthesis, lumbosacral region (principal); M51.26 Other intervertebral disc displacement, lumbar region; M51.36 Other intervertebral disc degeneration, lumbar region; M47.816 Spondylosis without myelopathy or radiculopathy, lumbar region
CPT/HCPCS: 72148

== ENCOUNTER → 2023-12-14 | Outpatient (CLI) | payer MEDICARE, OTHER ==
--- NOTE | 2023-12-31 12:46 | MM ---
Reason for Exam: Screening (asymptomatic). Last screening mammogram was performed 12 month(s) ago. Patient History: Menarche at age 12. First Full-Term at age 20. Postmenopausal. Patient used Estrogen for 1 year. Benign Excisional Biopsy. Maternal aunt had breast cancer. Risk Values: Gilda 5 year model risk: 1.6%. NCI Lifetime model risk: 4.3%. Prior Study Comparison: 11/16/2020 Bilateral Screening Mammogram, [facility]. 11/29/2021 Bilateral MG 3D screening mammo w/cad, [facility]. 12/12/2022 Bilateral MG 3D screening mammo w/cad, [facility]. Tissue Density: The breasts are almost entirely fatty. Findings: Analyzed By CAD. Right breast: There is no suspicious group of microcalcifications or new suspicious mass. Left breast: There is no suspicious group of microcalcifications or new suspicious mass. Overall Assessment: Negative, BI-RAD 1 Management: Screening Mammogram of both breasts in [address] [facility] will attempt to contact patient to return for supplemental views and ultrasound if indicated. Patient should continue monthly self-breast exams. A clinical breast exam by your physician is recommended on an annual basis. This exam should not preclude additional follow-up of suspicious palpable abnormalities. Note on Gilda scores and lifetime risk: 1. A Gilda score greater than 3% is considered moderate risk. If this is the case, consider specialist referral to assess eligibility for a risk reducing agent. 2. If overall lifetime risk for the development of breast cancer is 20% or higher, the patient may qualify for future screening with alternating mammogram and breast MRI. Electronically signed and approved by: Rigo Rogers DO
== END | disposition home or self-care (01) ==
LOC: RADMAMWWP 10:51
PROVIDERS: ATTEND Family Medicine
DX: Z12.31 Encounter for screening mammogram for malignant neoplasm of breast (principal); Z78.0 Asymptomatic menopausal state; Z80.3 Family history of malignant neoplasm of breast
CPT/HCPCS: 77063; 77067

== ENCOUNTER → 2024-01-18 | Outpatient (CLI) | payer MEDICARE, OTHER ==
--- NOTE | 2024-01-22 08:34 | US ---
EXAMINATION TYPE: US thyroid st tissue head/neck DATE OF EXAM: 01/18/2024 COMPARISON: US 2022 CLINICAL INDICATION: Female, 74 years old with history of E04.2 NONTOXIC MULTINODULAR GOITER; GLAND SIZE: Right Lobe: 4.8 x 1.4 x 2.2 cm Overall Parenchyma: heterogeneous Left Lobe: 3.8 x 1.3 x 1.6 cm Overall Parenchyma: heterogeneous Isthmus Thickness: 0.3 cm NODULES RIGHT: # of nodules measured on right: 0 LEFT: # of nodules measured on left: 1 1. 1.0 X 0.6 x 1.1 cm, mid, mixed cystic and solid, hypoechoic nodule, which is wider than tall, wi th ill-defined margins, without echogenic foci. Prior size: 0.7 x 0.6 x 0.9 cm ISTHMUS: # of nodules measured in the isthmus: 0 Bilateral neck scanned, no evidence of lymphadenopathy. IMPRESSION: Mildly suspicious nodule left lobe thyroid., Consider follow-up in one year. 2017 ACR TI-RADS LEVEL: TR-RADS 3 - Mildly Suspicious: Follow if > 1.5 cm, FNA if > 2.5 cm *Highest TI-RADS level nodule reported [facility], , 01/22/2024 8:32 AM
== END | disposition home or self-care (01) ==
LOC: RADUSWWP 07:10
PROVIDERS: ATTEND Family Medicine
DX: E04.2 Nontoxic multinodular goiter
CPT/HCPCS: 76536

== ENCOUNTER → 2024-06-17 | Outpatient (CLI) | payer MEDICARE, OTHER ==
[2024-06-17 10:57] VITALS: BP 137/63; PULSE 98; RESP 18; TEMP 97.8
--- NOTE | 2024-06-17 15:32 | P.PAINPG ---
PQRS Measure Charge Sheet Comment: HISTORY OF PRESENT ILLNESS: A 74 yr old female as a referral from Dr Martinez presents today w severe and chronic LBP > 2 yr secondary to radiculopathy, spondylosis and facet arthropathy without myelopathy for evaluation. Pt states pain level is provoked at 4-6 /10 in intensity, constant, localized in the lumbar spine, predominantly axial, achy in character w occasional shooting pain towards the hips an dRLE. Pain is provoked by over activity. Pain is alleviated by physician guided home exercises 4-5 times weekly since covid in 2019, heat, ice, topical, repositioning and rest . Oswestry axial pain score at 31. PMH: OA, Hyperlipidemia, Nephrolithiasis, GERD, Non toxic Goiter, Anxiety PSH: L Carotid Stent, Cholecystectomy, Tonsillectomy, R Cataract Resection, L Shoulder Surgery, D&Cs, R Ovarian Cystectomy SH: Former tobacco user, Occ ETOH use, No illicit drug use FH: Fa- CA. Mo- CAD. Dimple- CAD All: See list Meds: See list incl BioFreeze REVIEW OF ORGAN SYSTEMS: CONSTITUTIONAL: No fevers or chills. No recent weight loss. NEUROLOGICAL: + numbness and tingling along the distal extremities. No seizure disorders or headaches. MUSCULOSKELETAL: + pain PSYCHIATRIC: Denies current depression or suicidal thoughts. Physical Examinations : Constitutional : Cooperative , not in acute distress . Neurologic : Cranial nerve II to XII intact. No focal neurological deficits. Psychiatric : alert & oriented x 3. Matching mood & appropriate affect. Judgment & insight intact. Musculoskeletal : Cervical Spine Motor strength in the deltoid and biceps: Normal right side. Normal Left side Motor strength biceps and the wrist extensors: Normal right side . Normal left side Motor strength in the triceps muscle: Normal right side. Normal left side Deep tendon reflexes: Normal at the biceps. Normal at Brachioradialis. Normal at triceps Vertebral body tenderness to deep palpation over Cervical facet loading test: positive bilaterally Spurling test: positive bilaterally Neck distraction test: positive bilaterally Ernesto sign: positive bilaterally Lumbar spine Motor strength lower extremities ,thigh and legs 5/5 Right side , 5/5 Left side Deep tendon reflexes : Normal Knee Jerk. Normal Ankle Jerk Vertebral body tenderness over L5 Grier Test positive Lumbar facet Loading Test: positive Right / positive Left Range of motion of the lumbar spine Flexion 30 degrees, extension 10 degrees Straight Leg Raise test: Left> Right positive at < 35 degrees Sheron test: positive right / positive left. Severe tenderness over the Sacroiliac joint on the Right / Left sides Gaenslen test: positive bilaterally Seated flexion test: positive bilaterally. Sacral spine : Severe tenderness over the Sacroiliac joint: right side / left side Range of motion: Flexion of the lumbar spine <60 degrees Range of motion: Extension of the lumbar spine <20 degrees Gaenslen's Test positive Sheron test: positive right side / left side Thigh Thrust Test Sacral Thrust Test Imaging: MRI non contrast lumbar spine from 12/14/23 reviewed Assessment/ Plan : L2-L5 radiculopathy, L5-S1 anterolisthesis and stenosis Recommendation of SOFI L4-L5 #1. Risks, benefits of procedure discussed and patient verbalized understanding. Admits to anti- coagulant use or medical history of diabetes. Protocol for discontinuation/ continuation of medications robert procedure discussed. Medical clearance of Plavix from Dr Haynes requested. All questions answered. I have spent greater than 30 minutes on patient care today. Dr Naylor was available by phone for the evaluation of this patient. The time was used to review the medical records including relevant urine studies and Prescription history (MAPs), review of the available imaging, evaluation and examination of the patient, coordination of care with the medical staff and if applicable referring physicians, as well as creation of the medical record - Pain Location Bilateral Lower Back Non-Pharmacological Interventions: Heat, Ice, Position/Reposition Pharmacological Interventions: Topical Medication Home Medications: Ambulatory Orders Aspirin 81 mg PO DAILY 12/23/21 Clopidogrel [Plavix] 75 mg PO DAILY 12/23/21 Unk Vitamin B12 1 tab PO DAILY 12/23/21 Unk Vitamin D3 1 tab PO DAILY 12/23/21 Atorvastatin [Lipitor] 40 mg PO DAILY 02/07/23 Omeprazole Magnesium [PriLOSEC OTC] 20 mg PO DAILY 02/07/23 Lisinopril-Hctz 10-12.5 mg [Zestoretic 10-12.5] 1 each PO HS #30 tab 02/09/23 diazePAM [Valium] 5 mg PO DAILY 1 Days #2 tab 06/17/24 Controlled Substance Measures - Controlled Substance Measures Is patient prescribed a controlled substance at discharge?: Yes When asked, does pt state using other controlled substances?: No If prescribed controlled substance>3 days was MAPS reviewed?: Prescribed <3 Days
== END ==
LOC: PNWHC3 09:39
PROVIDERS: ATTEND Specialist
DX: M54.16 Radiculopathy, lumbar region (principal); M48.07 Spinal stenosis, lumbosacral region; M43.17 Spondylolisthesis, lumbosacral region; F17.210 Nicotine dependence, cigarettes, uncomplicated; Z88.8 Allergy status to other drugs, medicaments and biological substances
CPT/HCPCS: 99202

== ENCOUNTER 2024-07-02 06:59 | Day surgery (SDC) | payer MEDICARE, OTHER ==
[2024-06-28 10:39] VITALS: BMI 36.0
[2024-07-02] MEDS ORDERED: LACTATED RINGERS 1,000 ML IV SCH (07:11)
[2024-07-02 07:17] VITALS: RESP 16
[2024-07-02] MEDS ORDERED: IOPAMIDOL M300 15ML VIAL ONE (08:05)
[2024-07-02] MEDS ORDERED: methylPREDNISolone ACETATE 80 MG/ML 1 ML VIAL ONE (08:05)
--- NOTE | 2024-07-02 08:29 | FL ---
EXAMINATION TYPE: FL guided pain mgmt statistic DATE OF EXAM: 07/02/2024 CLINICAL INDICATION: Female, 74 years old with history of Lumbar Epid Inj; PHH, pain TECHNIQUE: Fluoroscopy. COMPARISON: None. FINDINGS: Fluoroscopic guidance was provided during pain relief procedure performed by Dr. Naylor . A total of 24 seconds of fluoroscopic time was utilized during the procedure and 2 images are acqu ired. Image acquired shows needle localization at the lower lumbar spine epidural space with contrast injection. Mild Degeneration changes of the spine. Total DAP: 0.00128 mGy x m2. IMPRESSION: As Above. [facility], , 07/02/2024 8:27 AM
[2024-07-02 08:33] VITALS: TEMP 97.3
--- NOTE | 2024-07-02 08:35 | P.PCN ---
Description of Procedure: PREOPERATIVE DIAGNOSIS: 1- Lumbar Degenerative Disc Diseases 2-Lumbar spondylosis with Facet arthropathy without myelopathy. 3-lumbar spinal stenosis POSTOPERATIVE DIAGNOSIS: 1-lumbar degenerative disc disease. 2-lumbar spondylosis with facet arthropathy without myelopathy. 3-lumbar spinal stenosis. PROCEDURE Injection of radio contrast material into L4-5 interspace, interpretation of epidurogram, injection of steroid at L4- 5 epidural space under fluoroscopic guidance. ANESTHESIA: Lidocaine 1% subcutaneously. In OR continuous pulse ox, EKG, blood pressure and verbal communication was maintained with the patient. EBL: Minimal PROCEDURE INDICATION: Before the procedure were discussed with the patient detailed procedure, alternatives, complications including infection, bleeding, nerve damage, paralysis all of which could be permanent. Patient understands and all questions were answered. PROCEDURE DESCRIPTION : After getting consent, patient in OR in prone position. Back was prepped with chlorhexidine and draped in sterile fashion. After injecting 10 mL of 1% lidocaine subcutaneously, a 20-gauge Tuohy needle was introduced at L4 5 interspace with loss of resistance technique using a syringe filled with air. Negative CSF, negative blood, negative paresthesia. Needle position was confirmed with AP and lateral view of the fluoroscope. After repeat negative aspiration 2 mL of Omnipaque 200 water soluble contrast was injected. Contrast was noted in the epidural space. No contrast was noted into intrathecal or intravascular space. After repeat negative aspiration 6 mL solution was injected intermittently which consists of 5 mL of preservative-free normal saline mixed with 1 mL of 80 mg Depo-Medrol. Needle was withdrawn intact. Skin was cleansed and Band-Aids was applied. DISPOSITION / PLANS: The patient tolerated the procedure well. No complication. The patient was placed in a supine position and transferred to the recovery area in a stable condition for observation. There was no evidence of lower extremity motor or sensory deficit after the procedure. Patient was discharged from the recovery room after meeting discharge criteria. Home discharge instructions were given to the patient by the staff. The patient was reexamined prior to discharge. The patient will schedule a follow up in the clinic in 2-4 weeks.
[2024-07-02 08:47] VITALS: BP 127/60; PULSE 85
== END 2024-07-02 08:53 | disposition home or self-care (01) ==
LOC: ORPAIN 06:59
PROVIDERS: ATTEND Pain Medicine Interventional Pain Medicine
DX: M51.369 Other intervertebral disc degeneration, lumbar region without mention of lumbar back pain or lower extremity pain (principal); M47.816 Spondylosis without myelopathy or radiculopathy, lumbar region; M48.061 Spinal stenosis, lumbar region without neurogenic claudication
CPT/HCPCS: 62323; Q9967; J1010

== ENCOUNTER → 2024-07-18 | Outpatient (CLI) | payer MEDICARE, OTHER ==
[2024-07-18 11:33] VITALS: BP 139/61; PULSE 85; RESP 16; TEMP 96.9
--- NOTE | 2024-07-18 14:25 | P.PAINPG ---
PQRS Measure Charge Sheet Comment: HISTORY OF PRESENT ILLNESS: A 74 yr old femal presents today w severe and chronic LBP > 2 yr secondary to radiculopathy, spondylosis and facet arthropathy without myelopathy for evaluation s/p SOFI L4-L5 #1. Pt states she experienced 50% pain relief x 2 wks s/p procedure. Pt states pain level is provoked at 6 /10 in intensity, constant, localized in the lumbar spine, predominantly axial, sharp in character without shooting pain. Pain is provoked by standing/ walking for periods > 15 min. Pain is alleviated by physician guided home exercises 4-5 times weekly since cov in 2019, heat, ice, topical, repositioning and rest . Oswestry axial pain score at 31. Interventional procedures include SOFI L4-L5 x1 (07/16) Medications include BioFreeze REVIEW OF ORGAN SYSTEMS: CONSTITUTIONAL: No fevers or chills. No recent weight loss. NEUROLOGICAL: + numbness and tingling along the distal extremities. No seizure disorders or headaches. MUSCULOSKELETAL: + pain PSYCHIATRIC: Denies current depression or suicidal thoughts. Physical Examinations : Constitutional : Cooperative , not in acute distress . Neurologic : Cranial nerve II to XII intact. No focal neurological deficits. Psychiatric : alert & oriented x 3. Matching mood & appropriate affect. Judgment & insight intact. Musculoskeletal : Cervical Spine Motor strength in the deltoid and biceps: Normal right side. Normal Left side Motor strength biceps and the wrist extensors: Normal right side . Normal left side Motor strength in the triceps muscle: Normal right side. Normal left side Deep tendon reflexes: Normal at the biceps. Normal at Brachioradialis. Normal at triceps Vertebral body tenderness to deep palpation over Cervical facet loading test: positive bilaterally Spurling test: positive bilaterally Neck distraction test: positive bilaterally Ernesto sign: positive bilaterally Lumbar spine Motor strength lower extremities ,thigh and legs 5/5 Right side , 5/5 Left side Deep tendon reflexes : Normal Knee Jerk. Normal Ankle Jerk Vertebral body tenderness over L5 Grier Test positive Lumbar facet Loading Test: positive Right / positive Left L4-L5/ L5-S1 Range of motion of the lumbar spine Flexion 30 degrees, extension 10 degrees Straight Leg Raise test: Left> Right positive at < 35 degrees Sheron test: positive right / positive left. Severe tenderness over the Sacroiliac joint on the Right / Left sides Gaenslen test: positive bilaterally Seated flexion test: positive bilaterally. Sacral spine : Severe tenderness over the Sacroiliac joint: right side / left side Range of motion: Flexion of the lumbar spine <60 degrees Range of motion: Extension of the lumbar spine <20 degrees Gaenslen's Test positive Sheron test: positive right side / left side Thigh Thrust Test Sacral Thrust Test Imaging: MRI non contrast lumbar spine from 12/14/23 reviewed Assessment/ Plan : L2-L5 radiculopathy, L5-S1 anterolisthesis and stenosis Recommendation of BL MBB L4-L5/ L5-S1 #1. Risks, benefits of procedure discussed and patient verbalized understanding. Admits to anti- coagulant use or medical history of diabetes. Protocol for discontinuation/ continuation of medications robert procedure discussed. Minimal anesthesia including Fentanyl and Versed if clinically indicated. All questions answered. I have spent greater than 30 minutes on patient care today. Dr Naylor was available by phone for the evaluation of this patient. The time was used to review the medical records including relevant urine studies and Prescription history (MAPs), review of the available imaging, evaluation and examination of the patient, coordination of care with the medical staff and if applicable referring physicians, as well as creation of the medical record PQRS Narrative: Hx Alcohol Use (MH) No Home Medications: Ambulatory Orders Clopidogrel [Plavix] 75 mg PO DAILY 12/23/21 Omeprazole Magnesium [PriLOSEC OTC] 20 mg PO DAILY 02/07/23 Ezetimibe [Zetia] 10 mg PO DAILY 06/28/24 Ibuprofen [Motrin Ib] 200 mg PO DIRECTED PRN 06/28/24 Losartan [Cozaar] 25 mg PO DAILY 06/28/24 Multivitamins, Thera [Multivitamin (formulary)] 1 dose PO DAILY 06/28/24 Rosuvastatin Calcium 40 mg PO DAILY 06/28/24 Spironolactone 25 mg PO DAILY 06/28/24 diazePAM [Valium] 5 mg PO DIRECTED 06/28/24 Controlled Substance Measures - Controlled Substance Measures Is patient prescribed a controlled substance at discharge?: No
== END ==
LOC: PNWHC3 10:26
PROVIDERS: ATTEND Specialist
DX: M47.26 Other spondylosis with radiculopathy, lumbar region (principal); M48.07 Spinal stenosis, lumbosacral region; M43.17 Spondylolisthesis, lumbosacral region; F17.210 Nicotine dependence, cigarettes, uncomplicated; Z88.8 Allergy status to other drugs, medicaments and biological substances
CPT/HCPCS: 99211

== ENCOUNTER 2024-08-06 07:47 | Day surgery (SDC) | payer MEDICARE, OTHER ==
[2024-08-06 09:39] VITALS: TEMP 97
[2024-08-06] MEDS: LACTATED RINGERS 1,000 ML IV SCH (09:45)
[2024-08-06] MEDS: IV FLUID CONTINUATION 1,000 ML IV ONE ×2 (09:47→10:51)
[2024-08-06] MEDS ORDERED: ROPIVACAINE 5MG/ML 20ML VIAL ONE (10:23)
[2024-08-06] MEDS ORDERED: MIDAZOLAM 2 MG/2 ML VIAL ONE (10:23)
[2024-08-06] MEDS ORDERED: fentaNYL (PF) 50 MCG/ML 2 ML AMP ONE (10:23)
--- NOTE | 2024-08-06 10:52 | P.PCN ---
Description of Procedure: Preprocedure diagnosis. 1. Lumbar spondylosis with facet joint arthropathy without myelopathy. 2. Lumbar degenerative disc disease. Postprocedure diagnosis. As above. Procedure done. Bilateral diagnostic block with local anesthetics at L3, L4, L5 medial branch to target the facet joint L4- 5 and L5-S1 with fluoroscopic guidan ce (fluoroscopy images are available in the radiology department) . Anesthesia. Moderate sedation with intravenous Versed 2 mg and fentanyl and local infiltration with local anesthetics. In OR, continuous pulse ox, EKG, blood pressure and verbal communication was maintained. Sedation time-start end . Blood loss. Minimal. Indication. The patient has low back pain secondary to lumbar facet joint arthropathy. Discussed the procedure and alternative and complications which includes infection, bleeding, nerve damage, paralysis ,aggravation of pain. Patient understands and all questions were answered. Patient iunderstands that if any pain relief occurs it will last for a few hours to a few days maximum. Procedure description. After getting consent patient was taken in the OR in prone position. Back prepped with chlorhexidine and draped in sterile fashion. After injecting 5 mL of plain 1% lidocaine subcutaneously, a 22-gauge spinal needle was introduced under tunnel vision of the fluoroscope at the junction of the superior articular process with RIGHT ala of the sacrum. With slight oblique fluoroscope, after injecting 5 mL of plain 1% lidocaine subcutaneously, a 22-gauge spinal needle was introduced under tunnel vision of the fluoroscope at the junction of the superior articular process with RIGHT L5 transverse process, junction of the superior articular process with the RIGHT L4 transverse process. Negative CSF, negative blood, negative paresthesia. After needle position confirmation by AP and crosstable lateral view, after negative aspiration, half milliliters of solution were injected at each point. Total 1- 1/2 mL of solution was injected on the right side which consists of 0.5% ropivacaine. In exactly same way, LEFT sided injections were done at the [facility] 3 points. Junction of the superior articular process with left ala of the sacrum, junction of the superior articular process with the left L5 transverse process, junction of the superior articular process with left L4 transverse process using 0.5 mL of solution at each point. Total 1-1/2 mL of solution was injected on the left side which consists of 0.5% ropivacaine . Spinal needles were taken out and bandages were applied. Disposition. Patient tolerated the procedure well. No complication. Discharged home in stable condition
--- NOTE | 2024-08-06 10:58 | FL ---
EXAMINATION TYPE: FL guided pain mgmt statistic DATE OF EXAM: 08/06/2024 FLUOROSCOPY bilateral lumbar facet block, 51 sec fluoro, dap .[id number] mGym2 5 images are submitted. [facility], , 08/06/2024 10:56 AM
[2024-08-06 11:11] VITALS: BP 107/60; PULSE 71; RESP 14
== END 2024-08-06 11:29 | disposition home or self-care (01) ==
LOC: ORPAIN 07:47
PROVIDERS: ATTEND Pain Medicine Interventional Pain Medicine
DX: M47.816 Spondylosis without myelopathy or radiculopathy, lumbar region (principal); M51.369 Other intervertebral disc degeneration, lumbar region without mention of lumbar back pain or lower extremity pain
CPT/HCPCS: 64493; 64494; J2250; J3010; J2795; 99152

== ENCOUNTER → 2024-08-29 | Outpatient (CLI) | payer MEDICARE, OTHER ==
[2024-08-29 09:48] VITALS: BP 117/74; PULSE 95; RESP 18; TEMP 96.9
--- NOTE | 2024-08-29 14:51 | P.PAINPG ---
PQRS Measure Charge Sheet Comment: HISTORY OF PRESENT ILLNESS: A 74 yr old female presents today w severe and chronic LBP > 2 yr secondary to radiculopathy, spondylosis and facet arthropathy without myelopathy for evaluation s/p BL MBB L4-L5/ L5-S1 #1. Pt states she experienced 80% pain relief x 3 hrs s/p procedure. Pt states pain level is provoked at 6 /10 in intensity, constant, localized in the lumbar spine, predominantly axial, sharp in character without shooting pain. Pain is provoked by standing/ walking for periods > 15 min. Pain is alleviated by physician guided home exercises 4-5 times weekly since cov in 2019, heat, ice, topical, repositioning and rest . Interventional procedures include SOFI L4-L5 x1 (07/16), BL MBB L3-L5 x1 Medications include BioFreeze REVIEW OF ORGAN SYSTEMS: CONSTITUTIONAL: No fevers or chills. No recent weight loss. NEUROLOGICAL: + numbness and tingling along the distal extremities. No seizure disorders or headaches. MUSCULOSKELETAL: + pain PSYCHIATRIC: Denies current depression or suicidal thoughts. Physical Examinations : Constitutional : Cooperative , not in acute distress . Neurologic : Cranial nerve II to XII intact. No focal neurological deficits. Psychiatric : alert & oriented x 3. Matching mood & appropriate affect. Judgment & insight intact. Musculoskeletal : Cervical Spine Motor strength in the deltoid and biceps: Normal right side. Normal Left side Motor strength biceps and the wrist extensors: Normal right side . Normal left side Motor strength in the triceps muscle: Normal right side. Normal left side Deep tendon reflexes: Normal at the biceps. Normal at Brachioradialis. Normal at triceps Vertebral body tenderness to deep palpation over Cervical facet loading test: positive bilaterally Spurling test: positive bilaterally Neck distraction test: positive bilaterally Ernesto sign: positive bilaterally Lumbar spine Motor strength lower extremities ,thigh and legs 5/5 Right side , 5/5 Left side Deep tendon reflexes : Normal Knee Jerk. Normal Ankle Jerk Vertebral body tenderness over L5 Grier Test positive Lumbar facet Loading Test: positive Right / positive Left L4-L5/ L5-S1 Range of motion of the lumbar spine Flexion 30 degrees, extension 10 degrees Straight Leg Raise test: Left> Right positive at < 35 degrees Sheron test: positive right / positive left. Severe tenderness over the Sacroiliac joint on the Right / Left sides Gaenslen test: positive bilaterally Seated flexion test: positive bilat erally. Sacral spine : Severe tenderness over the Sacroiliac joint: right side / left side Range of motion: Flexion of the lumbar spine <60 degrees Range of motion: Extension of the lumbar spine <20 degrees Gaenslen's Test positive Sheron test: positive right side / left side Thigh Thrust Test Sacral Thrust Test Imaging: MRI non contrast lumbar spine from 12/14/23 reviewed Assessment/ Plan : L2-L5 radiculopathy, L5-S1 anterolisthesis and stenosis Recommendation of BL MBB L4-L5/ L5-S1 #2. Risks, benefits of procedure discussed and patient verbalized understanding. Admits to anti- coagulant use or medical history of diabetes. Protocol for discontinuation/ continuation of medications robert procedure discussed. Minimal anesthesia including Fentanyl and Versed if clinically indicated. All questions answered. I have spent greater than 30 minutes on patient care today. Dr Naylor was available by phone for the evaluation of this patient. The time was used to review the medical records including relevant urine studies and Prescription history (MAPs), review of the available imaging, evaluation and examination of the patient, coordination of care with the medical staff and if applicable referring physicians, as well as creation of the medical record - Pain Location Lower Back Non-Pharmacological Interventions: Inactivity, Position/Reposition PQRS Narrative: Hx Alcohol Use (MH) No Home Medications: Ambulatory Orders Clopidogrel [Plavix] 75 mg PO DAILY 12/23/21 Omeprazole Magnesium [PriLOSEC OTC] 20 mg PO DAILY 02/07/23 Ezetimibe [Zetia] 10 mg PO DAILY 06/28/24 Ibuprofen [Motrin Ib] 200 mg PO DIRECTED PRN 06/28/24 Losartan [Cozaar] 25 mg PO DAILY 06/28/24 Multivitamins, Thera [Multivitamin (formulary)] 1 dose PO DAILY 06/28/24 Rosuvastatin Calcium 40 mg PO DAILY 06/28/24 Spironolactone 25 mg PO DAILY 06/28/24 Controlled Substance Measures - Controlled Substance Measures Is patient prescribed a controlled substance at discharge?: No
== END ==
LOC: PNWHC3 09:18
PROVIDERS: ATTEND Specialist
DX: M47.27 Other spondylosis with radiculopathy, lumbosacral region (principal); M48.07 Spinal stenosis, lumbosacral region; M43.16 Spondylolisthesis, lumbar region; F17.200 Nicotine dependence, unspecified, uncomplicated; Z88.8 Allergy status to other drugs, medicaments and biological substances
CPT/HCPCS: 99211

== ENCOUNTER → 2024-10-17 | Outpatient (CLI) | payer MEDICARE, OTHER ==
[2024-10-17 09:55] VITALS: BP 115/72; PULSE 70; RESP 18; TEMP 97
--- NOTE | 2024-10-17 14:58 | P.PAINPG ---
Objective - Vital Signs Vital signs: Vital Signs Temp 97.0 F L 10/17/24 09:48 Pulse 70 10/17/24 09:48 Resp 18 10/17/24 09:48 BP 115/72 10/17/24 09:48 Pulse Ox 95 10/17/24 09:48 FiO2 Intake & Output 10/16/24 10/17/24 10/17/24 18:59 06:59 18:59 Weight 99.79 kg PQRS Measure Charge Sheet Mode of Arrival: Ambulatory Comment: HISTORY OF PRESENT ILLNESS: A 74 yr old female presents today w severe and chronic LBP > 2 yr secondary to radiculopathy, spondylosis and facet arthropathy without myelopathy for evaluation s/p BL MBB L4-L5/ L5-S1 #2. Pt states she experienced 90% pain relief x 6 hrs s/p procedure. Pt states pain level is provoked at 6 /10 in intensity, constant, localized in the lumbar spine, predominantly axial, sharp in character without shooting pain. Pain is provoked by standing/ walking for periods > 15 min. Pain is alleviated by physician guided home exercises 4-5 times weekly since in 2019, heat, ice, topical, repositioning and rest . Interventional procedures include SOFI L4-L5 x1 (07/16), BL MBB L3-L5 x2 Medications include BioFreeze REVIEW OF ORGAN SYSTEMS: CONSTITUTIONAL: No fevers or chills. No recent weight loss. NEUROLOGICAL: + numbness and tingling along the distal extremities. No seizure disorders or headaches. MUSCULOSKELETAL: + pain PSYCHIATRIC: Denies current depression or suicidal thoughts. Physical Examinations : Constitutional : Cooperative , not in acute distress . Neurologic : Cranial nerve II to XII intact. No focal neurological deficits. Psychiatric : alert & oriented x 3. Matching mood & appropriate affect. Judgment & insight intact. Musculoskeletal : Cervical Spine Motor strength in the deltoid and biceps: Normal right side. Normal Left side Motor strength biceps and the wrist extensors: Normal right side . Normal left side Motor strength in the triceps muscle: Normal right side. Normal left side Deep tendon reflexes: Normal at the biceps. Normal at Brachioradialis. Normal at triceps Vertebral body tenderness to deep palpation over Cervical facet loading test: positive bilaterally Spurling test: positive bilaterally Neck distraction test: positive bilaterally Ernesto sign: positive bilaterally Lumbar spine Motor strength lower extremities ,thigh and legs 5/5 Right side , 5/5 Left side Deep tendon reflexes : Normal Knee Jerk. Normal Ankle Jerk Vertebral body tenderness over L5 Grier Test positive Lumbar facet Loading Test: positive Right / positive Left L4-L5/ L5-S1 Range of motion of the lumbar spine Flexion 30 degrees, extension 10 degrees Straight Leg Raise test: Left> Right positive at < 35 degrees Sheron test: positive right / positive left. Severe tenderness over the Sacroiliac joint on the Right / Left sides Gaenslen test: positive bilaterally Seated flexion test: positive bilaterally. Sacral spine : Severe tenderness over the Sacroiliac joint: right side / left side Range of motion: Flexion of the lumbar spine <60 degrees Range of motion: Extension of the lumbar spine <20 degrees Gaenslen's Test positive Sheron test: positive right side / left side Thigh Thrust Test Sacral Thrust Test Imaging: MRI non contrast lumbar spine from 12/14/23 reviewed Assessment/ Plan : L2-L5 radiculopathy, L5-S1 anterolisthesis and stenosis Recommendation of BL RFA L4-L5/ L5-S1. Risks, benefits of procedure discussed and patient verbalized understanding. Admits to anti- coagulant use or medical history of diabetes. Protocol for discontinuation/ continuation of medications robert procedure discussed. Minimal anesthesia including Fentanyl and Versed if clinically indicated. All questions answered. I have spent greater than 30 minutes on patient care today. Dr Naylor was available by phone for the evaluation of this patient. The time was used to review the medical records including relevant urine studies and Prescription history (MAPs), review of the available imaging, evaluation and examination of the patient, coordination of care with the medical staff and if applicable referring physicians, as well as creation of the medical record - Pain Location Bilateral Lower Back Non-Pharmacological Interventions: Heat, Home Exercise, Ice, Physical Therapy Pharmacological Interventions: Block, PRN Medication, Topical Medication PQRS Narrative: Blood Pressure 115/72 Pain Intensity [Bilateral 5 Lower Back] Scale Used Numeric (1 - 10) Hx Alcohol Use (MH) No Home Medications: Ambulatory Orders Clopidogrel [Plavix] 75 mg PO DAILY 12/23/21 Omeprazole Magnesium [PriLOSEC OTC] 20 mg PO DAILY 02/07/23 Ezetimibe [Zetia] 10 mg PO DAILY 06/28/24 Ibuprofen [Motrin Ib] 200 mg PO DIRECTED PRN 06/28/24 Losartan [Cozaar] 25 mg PO DAILY 06/28/24 Multivitamins, Thera [Multivitamin (formulary)] 1 dose PO DAILY 06/28/24 Rosuvastatin Calcium 40 mg PO DAILY 06/28/24 Spironolactone 25 mg PO DAILY 06/28/24 Controlled Substance Measures - Controlled Substance Measures Is patient prescribed a controlled substance at discharge?: No
== END ==
LOC: PNWHC3 09:21
PROVIDERS: ATTEND Specialist
DX: M47.26 Other spondylosis with radiculopathy, lumbar region (principal); M43.17 Spondylolisthesis, lumbosacral region; M48.07 Spinal stenosis, lumbosacral region; F17.200 Nicotine dependence, unspecified, uncomplicated; Z88.8 Allergy status to other drugs, medicaments and biological substances
CPT/HCPCS: 99211

== ENCOUNTER 2024-11-19 06:09 | Day surgery (SDC) | payer MEDICARE, OTHER ==
[2024-11-14 15:14] VITALS: BMI 36.6
[2024-11-19 06:41] VITALS: RESP 16; TEMP 98.2
[2024-11-19] MEDS: LACTATED RINGERS 1,000 ML BAG IV STA (06:44)
[2024-11-19] MEDS: IV FLUID CONTINUATION 1,000 ML IV ONE ×3 (06:44→07:56)
[2024-11-19] MEDS ORDERED: MIDAZOLAM 2 MG/2 ML VIAL ONE (07:04)
[2024-11-19] MEDS ORDERED: ROPIVACAINE 5 MG/ML 30 ML VIAL ONE (07:04)
[2024-11-19] MEDS ORDERED: fentaNYL (PF) 50 MCG/ML 2 ML AMP ONE (07:04)
--- NOTE | 2024-11-19 07:48 | P.PCN ---
Description of Procedure: Preprocedure diagnosis. 1. Lumbar spondylosis with facet joint arthropathy without myelopathy. 2. Lumbar degenerative disc disease. Procedure diagnosis. 1. Lumbar spondylosis with facet joint arthropathy without myelopathy. Space 2. Lumbar degenerative disc disease. Procedure.Bilateral radiofrequency thermocoagulation L3, L4 and L5 medial branch, with fluoroscopic guidance (fluoroscopy images are available in the radiology department) (to Denervate the facet joint at bilateral L4- 5 and L5-S1 levels) Anesthesia. Moderate sedation with intravenous Versed 2 mg and fentanyl 100 g and local infiltration with Lidocaine. Continuous pulse OX,BP,EKG and verbal communication was maintained with patient. Time. Start 704. Stop 738. EBL minimal. Procedure indication. The patient with low back pain secondary to lumbar facet arthropathy who he had more than 50% relief of her pain with previous diagnostic lumbar medial branch block with local anesthetics.The patient was seen and identified in the preoperative area. Risks: Benefits, complications, including but not limited to risk of infection, bleeding, ALLERGIC reaction to the medications and no complete pain relief and alternatives were discussed with the patient, the patient admitted to proceed with the procedure and signed the consent. Procedure description/technique. Patient was taken to the OR and timeout was completed. The patient was placed in prone position on the procedure table. The lumbar area was prepped and draped in the usual sterile fashion. After injecting 5 ml of 1% Lidocaine subcutaneously,using AP and then oblique, lateral view of fluoroscopy, 18-gauge 100 mm radiofrequency cannula with a 10 mm active tip was advanced and guided by fluoroscopy at the junction of supirior articular process with RIGHT ala of the sacrum, transverse process of L4&L5. Each site then underwent positive sensory testing with 50 Hz and 0-1 V and negative motor testing at 2.5 Hz and 0-3 V with local stimulation but no radicular symptoms down the leg. Thereafter each sites underwent radiofrequency thermocoagulation at 80C for 90 seconds after injecting 1 mL of preservative- free 0.5% ropivacaine. Repeat radiofrequency ablation was done at each points after rotating the needle 180 with same setting. This same procedure was repeated twice on the LEFT side at the junction of superior articular process with ala of sacrum,transverse process of L4, L5 with the same settings after positive sensory,negative motor stimulation and infil tration of 1.0 ml 5% Ropivacaine at each site . RF needles were taken out. At the end of the procedure the skin was cleansed and Band-Aids were applied. Disposition patient tolerated the procedure well. No complication. She was placed in supine position and transferred to the recovery area in stable condition for observation and was discharged home from recovery room after meeting discharge criteria. Discharge instructions given to the patient by the staff. The patient were examined prior to discharge the patient will schedule a follow-up in the clinic in 2-4 weeks.
--- NOTE | 2024-11-19 07:57 | FL ---
EXAMINATION TYPE: FL guided pain mgmt statistic Intraoperative/procedural fluoroscopic services were provided. CLINICAL INDICATION:Female, 74 years old with history of RF LUMBAR; , [facility] FINDINGS: Fluoroscopic images of RF bilateral lumbar. No radiographic evidence for complication. Total fluoroscopy time is 41.2 seconds. DAP: [id number] mGym2 Please see the operative/procedural note for further details. [facility], , 11/19/2024 7:55 AM
[2024-11-19 08:11] VITALS: BP 113/51; PULSE 70
== END 2024-11-19 08:19 | disposition home or self-care (01) ==
LOC: ORPAIN 06:09
PROVIDERS: ATTEND Pain Medicine Interventional Pain Medicine
DX: M47.816 Spondylosis without myelopathy or radiculopathy, lumbar region (principal); M51.369 Other intervertebral disc degeneration, lumbar region without mention of lumbar back pain or lower extremity pain; Z88.8 Allergy status to other drugs, medicaments and biological substances
CPT/HCPCS: 64635; 64636 ×2; J2250; J3010; J2795; 99152; 99153